=== PATIENT | female | born 1960 | race Caucasian/White ===

== ENCOUNTER 2017-08-25 13:02 | Inpatient (IN) | payer OTHER, MEDICARE ==
[~2017-08-25] VITALS: Ht 165.1 cm; Wt 75.3 kg
--- NOTE | 2017-08-25 14:50 | NUR ---
[id number]: PT IS 57 YEARS OLD FEMALE. ADMITTED ON 5150 FOR DTS. ACCORDING TO THE HOLD, PT HAS A HISTORY OF BIPOLAR. IS CURRENTLY CONCERNED THAT PT IS MANIC. STATES SHE HAD VOICED SUICIDAL IDEATIONS TODAY AND SAID PT WANTS TO TAKE ALL MEDICATIONS. PT DENIES SUICIDAL IDEATION AND HOMICIDAL IDEATION AT THIS TIME. PT HAS BIPOLAR, PSYCHOSIS, AFIB. BELONGINGS STORED AND DOCUMENTED. MRSA DONE. SKIN IS CLEAR. NOTIFIED DR. GARCIA AND REBECCA BROWNLEE ABOUT ADMISSION. PROVIDE PT'S RIGHT HANDBOOK AND ESCORTED PT AROUND THE UNIT TO BECOME MORE FAMILIARIZED. EDUCATED PT ON MEAL TIMES AND ACTIVITIES SCHEDULED. ALL PAPERWORK AND COMPUTER DOCUMENTATION COMPLETED. WILL ENDORSE TO INCOMING NURSE TO DOUBLE CHECK ALL COMPUTER AND PAPERWORK.
[2017-08-25] MEDS ORDERED: RISP1TAB7 PO (15:24)
[2017-08-25] MEDS ORDERED: PROP20TA7 PO (15:24)
[2017-08-25] MEDS ORDERED: ATOR10TA PO (15:24)
[2017-08-25] MEDS ORDERED: BENZ1TAB7 PO (15:24)
[2017-08-25] MEDS ORDERED: LEVO50TA8 PO (15:24)
[2017-08-25] MEDS ORDERED: MAG HYDROX/AL HYDROX/SIMETH 30 ML UDC PO PRN (15:30)
[2017-08-25 16:00] VITALS: BP 117/65
[2017-08-25 19:51] VITALS: BP 138/95
[2017-08-26 07:58] LABS: BILIRUBIN,TOTAL 0.4 mg/dL (0.2-1.0); CREATININE 0.9 mg/dL (0.6-1.3); POTASSIUM 3.6 mmol/L (3.5-5.1)
[2017-08-26 08:00] VITALS: BP 131/92
[2017-08-26 08:00] LABS: CHOLESTEROL 165 mg/dL (<200); HDL CHOLESTEROL 73 mg/dL (40-60); LDL 80 mg/dL (0-99); TRIGLYCERIDES 103 mg/dL (30-150)
[2017-08-26] MEDS: BENZTROPINE MESYLATE (1 MG) 1 MG TABLET PO SCH ×2 (11:10→17:08)
[2017-08-26] MEDS: LITHIUM CARBONATE 150 MG CAPSULE PO SCH ×2 (11:10→21:38)
[2017-08-26] MEDS: risperiDONE 1 MG TABLET PO SCH ×2 (11:11→17:07)
[2017-08-26 16:00] VITALS: BP 128/84
[2017-08-26 19:56] VITALS: BP 111/73
[2017-08-26] MEDS: ATORVASTATIN 10 MG TABLET PO SCH (21:38)
[2017-08-26] MEDS: TEMAZEPAM 7.5 MG CAPSULE PO PRN (21:39)
[2017-08-27] MEDS: ACETAMINOPHEN 325 MG TABLET PO PRN ×2 (03:41→20:56)
[2017-08-27] MEDS: clonazePAM 0.5 MG TABLET PO PRN ×2 (03:42→23:58)
[2017-08-27 08:00] VITALS: BP 124/87
[2017-08-27] MEDS: LITHIUM CARBONATE 150 MG CAPSULE PO SCH ×2 (08:36→20:23)
[2017-08-27] MEDS: BENZTROPINE MESYLATE (1 MG) 1 MG TABLET PO SCH ×2 (08:36→17:32)
[2017-08-27] MEDS: LEVOTHYROXINE SODIUM 50 MCG TABLET PO SCH (08:36)
[2017-08-27] MEDS: risperiDONE 1 MG TABLET PO SCH ×2 (08:36→17:32)
[2017-08-27 16:00] VITALS: BP 111/79
[2017-08-27] MEDS: PROPRANOLOL HCL 10 MG TABLET PO SCH (18:18)
[2017-08-27] MEDS: LIDOCAINE 5% (PATCH) 1 EA PATCH TP SCH (20:23)
[2017-08-27 20:57] VITALS: BP 111/57
[2017-08-27] MEDS: ATORVASTATIN 10 MG TABLET PO SCH (21:31)
[2017-08-27] MEDS: TEMAZEPAM 7.5 MG CAPSULE PO PRN (21:47)
--- NOTE | 2017-08-27 23:58 | NUR ---
GPS RN NOTES: PATIENT VERY ANXIOUS AND RESTLESS, YELLING AND SCREAMING. ADMINISTERED KLONOPIN 0.5MG PO ORDERED. WILL CONTINUE TO MONITOR [id number] FOR SAFETY AND BEHAVIOR.
--- NOTE | 2017-08-28 06:28 | NUR ---
GPS RN NOTES: PATIENT NOTED TO BE SEXUALLY PREOCCUPIED. PATIENT WAS ASKING FOR DIAPER AND PREFERS MALE TO CHANGE HER. PATIENT STATED TO HAVE A GOOD LOOKING DOCTOR ASSESS HER. PATIENT WAS BEING REDIRECTED. PATIENT IS AMBULATORY WITH STEADY GAIT. BUT PATIENT WAS ASKING FOR ASSISTIVE DEVICE (WALKER). AND THEN, PT CAME TO THE UNIT AND INFORMED PRIMARY NURSE THAT IT'S MIRACLE THAT SHE CAN WALK NOW. PATIENT STATES SHE WILL CALL 911. BECAUSE PATIENT STATES "THEY DON'T LISTEN TO ME AND NOT HELPING ME". WILL CONTINUE TO REDIRECT PATIENT'S BEHAVIOR. SET LIMITS. WILL CONTINUE TO MONITOR [id number] FOR SAFETY AND BEHAVIOR.
[2017-08-28] MEDS: ACETAMINOPHEN 325 MG TABLET PO PRN (06:51)
--- NOTE | 2017-08-28 07:55 | NUR ---
RN-CO: Patient is sexually preoccupied, showing her "behind" to staff. Verbalizing profanities like " I like that RN he is handsome I want to have three with them." Advised patient to stop saying those words, patient smiled and went to her room. Staff will continue to monitor and notify MD.
[2017-08-28 08:00] VITALS: BP 146/67
[2017-08-28] MEDS: LEVOTHYROXINE SODIUM 50 MCG TABLET PO SCH (08:05)
[2017-08-28] MEDS: BENZTROPINE MESYLATE (1 MG) 1 MG TABLET PO SCH ×2 (08:05→16:35)
[2017-08-28] MEDS: LITHIUM CARBONATE 150 MG CAPSULE PO SCH ×2 (08:05→20:27)
[2017-08-28] MEDS: PROPRANOLOL HCL 10 MG TABLET PO SCH ×2 (08:05→16:36)
[2017-08-28] MEDS: risperiDONE 1 MG TABLET PO SCH ×2 (08:05→16:35)
--- NOTE | 2017-08-28 08:13 | NUR ---
RN-CO: PATIENT REQUESTED TO HAVE A MALE STAFF TO HELP HER CHANGE HER UNDERWEAR HOWEVER PATIENT IS SELF CARE AND AMBULATORY. PATIENT STATED A WANT A MALE STAFF TO FEED ME WITH " 2 EGGS AND 1 SAUSAGE" AND THEN SMILED. PATIENT NEEDS CONSTANT REDIRECTIONS AND LIMIT SETTING.
[2017-08-28 13:11] LABS: CALCIUM, SERUM 9.9 mg/dL (8.5-10.1); CREATININE 0.9 mg/dL (0.6-1.3); POTASSIUM 3.9 mmol/L (3.5-5.1)
[2017-08-28 13:12] LABS: BASOPHILS % (AUTO) 0.3 % (0.0-2.0); EOSINOPHILS # (AUTO) 0.1 /CMM (0.0-0.7); EOSINOPHILS % (AUTO) 1.7 % (0.0-6.0); HEMATOCRIT 35 % (33-45); HEMOGLOBIN 11.3 g/dL (11.5-14.8); LYMPHOCYTES # (AUTO) 1.8 /CMM (0.8-4.8); LYMPHOCYTES % (AUTO) 20.3 % (20.0-44.0); MEAN CORPUSCULAR HEMOGLOBIN 32 PG (26.0-33.0); MEAN CORPUSCULAR HGB CONC 33 g/dl (31.0-36.0); MEAN CORPUSCULAR VOLUME 97 fL (82-100); MONOCYTES # (AUTO) 0.5 /CMM (0.1-1.30); MONOCYTES % (AUTO) 6.1 % (2.0-12.0); NEUTROPHILS # (AUTO) 6.2 /CMM (1.8-8.9); NEUTROPHILS % (AUTO) 71.6 % (43.0-81.0); PLATELET COUNT (AUTO) 296 /CMM (150-450); RED BLOOD CELL COUNT(AUTO) 3.56 MIL/uL (4.0-5.2); WHITE BLOOD COUNT (AUTO) 8.7 K/uL (4.3-11.0)
--- NOTE | 2017-08-28 14:24 | NUR ---
Initial Discharge Note: Patient states that the address [[address] [place] [address]], which is listed on the facesheet is not accurate. Patient states that she and her recently moved, but she cannot recall the current address. Patient provided SW with her 's contact information. SW attempted to contact patient's with the numbers provided by patient and the numbers listed on the facesheet, but was unsuccessful. SW called patient's Karson [phone] [not accepting calls at this time] / [phone] [non working number]/ [phone] [left voicemail with direct contact information]/ [phone] [left voicemail with direct contact information]. SW to follow up with MD and facilitate safe and proper discharge.
--- NOTE | 2017-08-28 15:10 | NUR ---
Discharge Planning: DEENA spoke with patient's Karson [phone]. Karson stated that he would like patient to return home upon discharge. Addendum: 08/30/17 at 1540 by ABRAHAM SHAFFER Per pt's , the address on facesheet is accurate as they have not moved yet.
[2017-08-28 16:00] VITALS: BP 131/97
[2017-08-28] MEDS: MAGNESIUM HYDROXIDE 30 ML UDC PO PRN (18:51)
[2017-08-28 19:57] VITALS: BP 102/51
[2017-08-28] MEDS: LIDOCAINE 5% (PATCH) 1 EA PATCH TP SCH ×3 (20:00→22:52)
[2017-08-28] MEDS: ATORVASTATIN 10 MG TABLET PO SCH ×2 (21:26→22:52)
--- NOTE | 2017-08-28 21:26 | NUR ---
Patient refused her lipitor tonight, she stated, " I don't want to take medication, I am tired."
--- NOTE | 2017-08-28 21:30 | NUR ---
PATIENT REFUSED HER LIDODERM PATCH TONIGHT, SHE STATED, " I REFUSED TO TAKE ANYTHING TONIGHT, MY ARM IS NOT HURTING ANYMORE."
--- NOTE | 2017-08-28 22:50 | NUR ---
0769 PATIENT APPROACHED ME ASKING FOR HER NIGHT MEDICATIONS. SHE STATED THAT SHE WANTS TO TAKE THEM NOW BECAUSE THEY WILL HELP HER SLEEP.
[2017-08-28] MEDS: TEMAZEPAM 7.5 MG CAPSULE PO PRN (23:48)
--- NOTE | 2017-08-28 23:48 | NUR ---
Patient came up at the nurse's station, unable to sleep, requesting for her sleeping medication, temazepam 15 mg po given.
[2017-08-29] MEDS: MAGNESIUM HYDROXIDE 30 ML UDC PO PRN (07:14)
--- NOTE | 2017-08-29 07:15 | NUR ---
PATIENT STILL HAD NO BOWEL MOVEMENT, MILK OF MAGNESIA 30 ML PO GIVEN. WILL MONITOR BOWEL MOVEMENT
[2017-08-29 08:00] VITALS: BP 125/85
[2017-08-29] MEDS: risperiDONE 1 MG TABLET PO SCH ×2 (08:24→16:26)
[2017-08-29] MEDS: BENZTROPINE MESYLATE (1 MG) 1 MG TABLET PO SCH ×2 (08:24→16:26)
[2017-08-29] MEDS: LITHIUM CARBONATE 150 MG CAPSULE PO SCH ×2 (08:24→20:13)
[2017-08-29] MEDS: LEVOTHYROXINE SODIUM 50 MCG TABLET PO SCH (08:24)
[2017-08-29] MEDS: PROPRANOLOL HCL 10 MG TABLET PO SCH ×2 (08:25→16:27)
[2017-08-29 16:00] VITALS: BP 105/73
[2017-08-29 20:00] VITALS: BP 106/64
[2017-08-30 08:00] VITALS: BP 109/76
[2017-08-30] MEDS: BENZTROPINE MESYLATE (1 MG) 1 MG TABLET PO SCH ×2 (08:03→16:06)
[2017-08-30] MEDS: LITHIUM CARBONATE 150 MG CAPSULE PO SCH ×2 (08:03→20:11)
[2017-08-30] MEDS: PROPRANOLOL HCL 10 MG TABLET PO SCH ×2 (08:03→16:06)
[2017-08-30] MEDS: LEVOTHYROXINE SODIUM 50 MCG TABLET PO SCH (08:03)
[2017-08-30] MEDS: risperiDONE 1 MG TABLET PO SCH ×2 (08:04→16:06)
[2017-08-30 08:33] VITALS: BP 109/76
--- NOTE | 2017-08-30 09:20 | NUR ---
UR Review: DEENA called and spoke with UR immigration case worker Reg from [facility] @ [phone]. Reg informed DEENA that patient is under Medicare parts A&B and that there is no clinical review required for this patient. Reg stated that he will update that in his system as well.
--- NOTE | 2017-08-30 12:06 | NUR ---
UR Review: DEENA spoke with case management assistant Khang [phone] ext [phone] and provided him with verbal clinicals. Khang authorized stay through the weekend with review due on September 02.
--- NOTE | 2017-08-30 15:37 | NUR ---
Discharge Planning: DEENA called and left a message for patient's Karson [phone] regarding patient's discharge set for Saturday. DEENA provided her direct contact information in the voicemail.
--- NOTE | 2017-08-30 15:57 | NUR ---
Discharge Planning: DEENA spoke with patient's Karson [phone] who had concerns about patient's discharge on Saturday. Karson stated that he would like to speak with psychiatrist. DEENA informed Dr. Sweeney.
[2017-08-30 16:00] VITALS: BP 128/76
[2017-08-30] MEDS: ACETAMINOPHEN 325 MG TABLET PO PRN (16:05)
[2017-08-30] MEDS: LIDOCAINE 5% (PATCH) 1 EA PATCH TP SCH (19:21)
[2017-08-30 20:00] VITALS: BP 121/57
[2017-08-30] MEDS: ATORVASTATIN 10 MG TABLET PO SCH (21:06)
[2017-08-31 08:00] VITALS: BP 112/81
[2017-08-31] MEDS: risperiDONE 1 MG TABLET PO SCH ×2 (08:55→16:19)
[2017-08-31] MEDS: LITHIUM CARBONATE 150 MG CAPSULE PO SCH ×2 (08:55→21:35)
[2017-08-31] MEDS: LEVOTHYROXINE SODIUM 50 MCG TABLET PO SCH (08:55)
[2017-08-31] MEDS: BENZTROPINE MESYLATE (1 MG) 1 MG TABLET PO SCH ×2 (08:55→16:19)
[2017-08-31] MEDS: PROPRANOLOL HCL 10 MG TABLET PO SCH ×2 (08:56→16:17)
[2017-08-31 16:00] VITALS: BP 105/60
[2017-08-31 20:00] VITALS: BP 122/78
[2017-08-31] MEDS: LIDOCAINE 5% (PATCH) 1 EA PATCH TP SCH (20:32)
[2017-08-31] MEDS: ATORVASTATIN 10 MG TABLET PO SCH (21:35)
--- NOTE | 2017-09-01 01:29 | NUR ---
Pt has been quite fragmented, confused, & unpredictable but compliant with care.
[2017-09-01] MEDS: BENZTROPINE MESYLATE (1 MG) 1 MG TABLET PO SCH ×2 (08:16→16:48)
[2017-09-01] MEDS: risperiDONE 1 MG TABLET PO SCH ×2 (08:16→16:48)
[2017-09-01] MEDS: LEVOTHYROXINE SODIUM 50 MCG TABLET PO SCH (08:16)
[2017-09-01] MEDS: PROPRANOLOL HCL 10 MG TABLET PO SCH ×2 (08:17→16:49)
[2017-09-01] MEDS: LITHIUM CARBONATE 150 MG CAPSULE PO SCH ×2 (08:17→20:19)
[2017-09-01 08:36] VITALS: BP 100/63
[2017-09-01 16:12] VITALS: BP 112/74
[2017-09-01] MEDS: LIDOCAINE 5% (PATCH) 1 EA PATCH TP SCH (19:36)
[2017-09-01 19:55] VITALS: BP 97/57
[2017-09-01] MEDS: ATORVASTATIN 10 MG TABLET PO SCH (21:54)
[2017-09-01] MEDS: TEMAZEPAM 7.5 MG CAPSULE PO PRN (23:19)
--- NOTE | 2017-09-01 23:19 | NUR ---
TEMAZEPAM 15 MG CAP PO GIVEN FOR INSOMNIA. WILL CONTINUE TO MONITOR
--- NOTE | 2017-09-02 00:22 | NUR ---
0020: PATIENT SLEEPING AT THIS TIME. NO APPARENT DISTRESS NOTED. WILL CONTINUE TO MONITOR.
[2017-09-02 08:00] VITALS: BP 114/79
[2017-09-02] MEDS: LITHIUM CARBONATE 150 MG CAPSULE PO SCH ×2 (08:50→21:09)
[2017-09-02] MEDS: PROPRANOLOL HCL 10 MG TABLET PO SCH ×2 (08:51→18:19)
[2017-09-02] MEDS: risperiDONE 1 MG TABLET PO SCH ×2 (08:51→18:18)
[2017-09-02] MEDS: LEVOTHYROXINE SODIUM 50 MCG TABLET PO SCH (08:51)
[2017-09-02] MEDS: BENZTROPINE MESYLATE (1 MG) 1 MG TABLET PO SCH ×2 (08:51→18:18)
--- NOTE | 2017-09-02 09:47 | NUR ---
UR Review: DEENA left verbal clinicals for machine adjuster leader case trim Khang [phone] ext [phone]. SW provided progress notes, support system and medication. DEENA requested authorization for additional days.
--- NOTE | 2017-09-02 11:09 | NUR ---
UR Review: SW was informed by telephonic case manager Khang [phone] that patient was authorized through the , with a review due on the .
[2017-09-02 16:00] VITALS: BP 140/93
[2017-09-02 19:48] VITALS: BP 110/79
[2017-09-02] MEDS: LIDOCAINE 5% (PATCH) 1 EA PATCH TP SCH (21:00)
[2017-09-02] MEDS: ATORVASTATIN 10 MG TABLET PO SCH (21:09)
[2017-09-02] MEDS: TEMAZEPAM 7.5 MG CAPSULE PO PRN (21:10)
[2017-09-03 08:00] VITALS: BP 124/97
[2017-09-03] MEDS: risperiDONE 1 MG TABLET PO SCH ×2 (08:35→16:10)
[2017-09-03] MEDS: LEVOTHYROXINE SODIUM 50 MCG TABLET PO SCH (08:35)
[2017-09-03] MEDS: BENZTROPINE MESYLATE (1 MG) 1 MG TABLET PO SCH ×2 (08:35→16:10)
[2017-09-03] MEDS: LITHIUM CARBONATE 150 MG CAPSULE PO SCH ×2 (08:35→20:56)
[2017-09-03] MEDS: PROPRANOLOL HCL 10 MG TABLET PO SCH ×2 (08:36→16:11)
--- NOTE | 2017-09-03 15:15 | NUR ---
Discharge Planning: DEENA spoke with patient's Karson [phone], who stated that he will be able to pick patient up tomorrow between 3-4pm.
[2017-09-03 16:10] VITALS: BP 120/79
[2017-09-03] MEDS: clonazePAM 0.5 MG TABLET PO PRN (19:52)
[2017-09-03 20:15] VITALS: BP 120/67
[2017-09-03] MEDS: ATORVASTATIN 10 MG TABLET PO SCH (20:56)
[2017-09-03] MEDS: LIDOCAINE 5% (PATCH) 1 EA PATCH TP SCH (20:56)
[2017-09-03] MEDS: TEMAZEPAM 7.5 MG CAPSULE PO PRN (20:57)
[2017-09-04 08:00] VITALS: BP 132/80
[2017-09-04 08:12] VITALS: BP 132/80
[2017-09-04] MEDS: LEVOTHYROXINE SODIUM 50 MCG TABLET PO SCH (08:12)
[2017-09-04] MEDS: BENZTROPINE MESYLATE (1 MG) 1 MG TABLET PO SCH (08:12)
[2017-09-04] MEDS: LITHIUM CARBONATE 150 MG CAPSULE PO SCH (08:12)
[2017-09-04] MEDS: PROPRANOLOL HCL 10 MG TABLET PO SCH (08:12)
[2017-09-04] MEDS: risperiDONE 1 MG TABLET PO SCH (08:13)
--- NOTE | 2017-09-04 10:02 | NUR ---
Discharge Note: Patient will be discharged home to [address] [place] [address], where patient resides with her . Patient will be picked up by her , Karson [phone], in his private vehicle. Patient and both agreement with the discharge plan. Upon discharge, patient is cooperative. Patient denies suicidal and homicidal ideation. Patient will be seen by her sql developer dba, Dr. Benoit [phone] on September 05 at 9:30am at his [facility], which is located on [address] [place] [address] [address] [place] [address]. Patient will also see her psychiatrist Dr. Cruz [address] [facility] [address] [place] [address] on September 11 at 5:40pm.
--- NOTE | 2017-09-04 11:40 | NUR ---
UR Review: DEENA spoke with case management coordinator Khang [phone] ext [phone] and informed him that patient will be discharging from the hospital today and that no additional days were needed. Khang thanked DEENA.
--- NOTE | 2017-09-04 15:50 | NUR ---
TYPESETTING MACHINE OPERATOR/TENDER NOTE :PATIENT ALERT ,VERBALLY RESPONSIVE ,DENIES SUICIDAL IDEATION ,DENIES HOMICIDAL IDEATION ,DENIES VISUAL AUDITORY HALLUCINATION ,ORIENTED X3 ,NO C/O PAIN ,VS STABLE , AND FABIO TEACHING MANAGER CALLED WITH DISCHARGE ORDERS ,ALL BELONGINGS RETURNED TO PATIENT ,PRESCRIPTION GIVEN TO PATIENT AND EXPLAINED TO PATIENT AND ABLE TO VERBALIZE UNDERSTANDING .PATIENT DISCHARGE WITH .
== END 2017-09-04 15:50 | disposition home or self-care (01) | DRG 885 ==
LOC: GPS 15:07
PROVIDERS: ADMIT Psychiatry & Neurology Psychiatry; ATTEND Nurse Practitioner Acute Care
DX: F31.64 Bipolar disorder, current episode mixed, severe, with psychotic features (principal); E44.0 Moderate protein-calorie malnutrition; M41.86 Other forms of scoliosis, lumbar region; E88.09 Other disorders of plasma-protein metabolism, not elsewhere classified; F23 Brief psychotic disorder; D63.8 Anemia in other chronic diseases classified elsewhere; E03.9 Hypothyroidism, unspecified; E78.5 Hyperlipidemia, unspecified; Z68.27 Body mass index [BMI] 27.0-27.9, adult
CPT/HCPCS: 36415; 80048-TC; 80053-TC; 80061-TC; 85025-TC; 87081-TC

== ENCOUNTER 2018-04-01 19:56 | Inpatient (IN) | payer OTHER, MEDICARE ==
[~2018-04-01] VITALS: Ht 165.1 cm; Wt 75.3 kg
[~2018-04-01 19:56] MED LIST: ATOR10TA PO; LEVO50TA8 PO; PROP20TA7 PO
[2018-04-01] MEDS ORDERED: MAG HYDROX/AL HYDROX/SIMETH 30 ML UDC PO PRN (21:00)
[2018-04-01] MEDS ORDERED: MAGNESIUM HYDROXIDE 30 ML UDC PO PRN (21:00)
[2018-04-01] MEDS ORDERED: FURO20TA4 PO (21:27)
[2018-04-01] MEDS ORDERED: LORA1TAB PO (21:27)
[2018-04-01] MEDS ORDERED: LEVO25TA7 PO (21:27)
[2018-04-01] MEDS ORDERED: ATOR10TA PO (21:27)
[2018-04-01] MEDS ORDERED: DIVA500T4 PO ×2 (21:27)
[2018-04-01] MEDS ORDERED: BENZ2TAB7 PO (21:27)
[2018-04-01] MEDS ORDERED: LITH300T3 PO (21:27)
[2018-04-01] MEDS ORDERED: DIPH50CA4 PO (21:27)
[2018-04-01] MEDS ORDERED: CARV3.122 PO (21:27)
--- NOTE | 2018-04-01 21:30 | NUR ---
GPS ADMISSION NOTE, RECEIVED PATIENT FROM [facility]. PATIENT ARRIVED ON THIS UNIT AT 2130 VIA STRETCHER WITH 2 EMT ESCORTS. PATIENT ADMITTED ON A 5150 HOLD FOR DTO. PER HOLD PATIENT IS NOT SLEEPING, CURSING, SLAMMING DOORS AND HEARING VOICES WHEN SHE PREYS. THE 5150 WAS REVIEWED AND THE DOCUMENTATION IN THE 5150 HOLD APPEARS TO REFLECT THE PRESENTATION OF THE PATIENT. UPON FACE TO FACE ASSESSMENT PATIENT IS CURRENTLY LYING IN BED AWAKE, HAS NO S/S OR COMPLAINTS OF PAIN AT THIS TIME. PATIENT IS DISPLAYING NO S/S OF APPARENT DISTRESS. PATIENT BREATHING IS UNLABORED WITH EQUAL RISE AND FALL OF THE CHEST. PATIENT IS ALERT AND ORIENTATED X 2 ON ROOM AIR. PATIENT ASSISTED WITH TURING AND REPOSITIONING Q2HR AND PRN FOR COMFORT AND CIRCULATION. PATIENT HAS NO NEEDS AT THIS TIME. PATIENT IS NOTED TO BEING HYPERVERBAL, DISHEVELED, DISORGANIZED, ANXIOUS, COOPERATIVE, AND NEEDS REDIRECTION. PATIENT DENIES SUICIDE IDEATIONS AND HOMICIDAL IDEATIONS AT THIS TIME. PATIENT IS UNDER THE PSYCHIATRIC CARE OF DR. PENNINGTON AND THE MEDICAL CARE OF DR TORREY Tran. PATIENT BELONGINGS WERE INVENTORIED AND CHECKED FOR CONTRABAND. ALL CONTRABAND REMOVED AND STORED IN PATIENT HALLWAY LOCKER. PATIENT ADVANCED DIRECTIVES PREFERENCE, IMMUNIZATIONS QUESTIONER, NECESSARY PAPERWORK, AND SKIN ASSESSMENT COMPLETED. PATIENT ORIENTATED TO ROOM, FLOOR, AND STAFF WITH ALL QUESTIONS ANSWERED. PATIENT EDUCATED ON THE USE OF THE CALL METZGER. PATIENT BED SIDE RAILS ARE UP X 2 FOR SAFETY. PATIENT BED IS LOCKED, LOW AND I WILL CONTINUE TO MONITOR THIS PATIENT Q 15 MIN WITH THE HELP OF STAFF TO MAINTAIN SAFETY.
[2018-04-01] MEDS: TEMAZEPAM 7.5 MG CAPSULE PO PRN (23:43)
--- NOTE | 2018-04-01 23:43 | NUR ---
GPS RN NOTE, PATIENT HAS A COMPLAINT OF NOT BEING ABLE TO SLEEP AND IS REQUESTING RESTORIL AT THIS TIME. PATIENT HAS VITAL SIGNS ARE STABLE. GAVE RESTORIL 7.5 MG PO HS ORDERED. WILL REASSESS FOR INSOMNIA AND I WILL CONTINUE TO MONITOR THIS PATIENT.
[2018-04-02] MEDS: LORAZEPAM 0.5 MG TABLET PO PRN (03:56)
--- NOTE | 2018-04-02 03:56 | NUR ---
GPS RN NOTE, PATIENT HAS A COMPLAINT OF FEELING ANXIOUS AND IS REQUESTING ATIVAN AT THIS TIME. PATIENT VITAL SIGNS ARE STABLE. GAVE ATIVAN 0.5 MG PO Q6HR PRN ORDERED. WILL REASSESS FOR ANXIETY AND I WILL CONTINUE TO MONITOR THIS PATIENT.
--- NOTE | 2018-04-02 06:43 | NUR ---
GPS RN NOTE, PATIENT HAS A COMPLAINT OF BOTH SHOULDER PAIN AT 2 OUT10 ON THE PAIN SCALE AND IS REQUESTING TYLENOL AT THIS TIME. PATIENT VITAL SIGNS ARE STABLE. GAVE TYLENOL 650 MG PO Q6HR PRN ORDERED. WILL REASSESS PAIN AND I WILL CONTINUE TO MONITOR THIS PATIENT.
[2018-04-02] MEDS: ACETAMINOPHEN 325 MG TABLET PO PRN (06:46)
[2018-04-02] MEDS ORDERED: LEVOTHYROXINE SODIUM 50 MCG TABLET PO SCH (07:30)
[2018-04-02 08:00] VITALS: BP 100/66
[2018-04-02 08:08] LABS: CHOLESTEROL 145 mg/dL (<200); HDL CHOLESTEROL 59 mg/dL (40-60); LDL 78 mg/dL (0-99); TRIGLYCERIDES 123 mg/dL (30-150)
[2018-04-02 08:09] LABS: ALBUMIN 3.1 g/dL (3.4-5.0); BILIRUBIN,TOTAL 0.3 mg/dL (0.2-1.0); CALCIUM, SERUM 9.1 mg/dL (8.5-10.1); CREATININE 1.1 mg/dL (0.6-1.3); POTASSIUM 4.7 mmol/L (3.5-5.1); TOTAL PROTEIN, SERUM 6.9 g/dL (6.4-8.2)
[2018-04-02] MEDS ORDERED: DIVALPROEX SODIUM 500 MG TABLET.DR PO SCH ×2 (09:00→22:00)
[2018-04-02] MEDS: CARVEDILOL 3.125 MG TABLET PO SCH ×2 (09:03→17:05)
[2018-04-02] MEDS: FUROSEMIDE 20 MG TABLET PO SCH (09:03)
[2018-04-02] MEDS: LEVOTHYROXINE SODIUM 25 MCG TABLET PO SCH (09:03)
[2018-04-02] MEDS: PROPRANOLOL HCL 10 MG TABLET PO SCH ×2 (09:04→21:18)
--- NOTE | 2018-04-02 10:08 | NUR ---
DEENA called the pt's health and social care teacher, Yin ([phone]), but was unable to make contact.
--- NOTE | 2018-04-02 10:22 | NUR ---
SW called the pt's social insurance analyst at the [facility], Yin ([phone]), and discussed keeping in touch about the discharge plan. She will be returning to the [facility] as it is court ordered.
[2018-04-02] MEDS: LITHIUM CARBONATE 150 MG CAPSULE PO SCH ×2 (15:46→21:17)
[2018-04-02 16:00] VITALS: BP 132/85
[2018-04-02 19:55] VITALS: BP 99/65
[2018-04-02] MEDS: DIVALPROEX SODIUM 125 MG CAP.SPRINK PO SCH (20:48)
[2018-04-02] MEDS: diphenhydrAMINE HCL 50 MG CAPSULE PO SCH (21:17)
[2018-04-02] MEDS: BENZTROPINE MESYLATE (1 MG) 1 MG TABLET PO SCH (21:17)
[2018-04-02] MEDS: ATORVASTATIN 10 MG TABLET PO SCH (21:17)
[2018-04-02] MEDS ORDERED: risperiDONE 1 MG TABLET PO SCH (22:00)
[2018-04-02] MEDS ORDERED: ATORVASTATIN 10 MG TABLET PO SCH (22:00)
[2018-04-02 23:29] LABS: APPEARANCE,URINE CLEAR (CLEAR); BILIRUBIN,URINE NEGATIVE (NEGATIVE); BLOOD, URINE NEGATIVE Ery/uL (NEGATIVE); COLOR,URINE YELLOW (YELLOW); KETONES,URINE NEGATIVE (NEGATIVE); LEUKOCYTE ESTERASE ,URINE 1+ (NEGATIVE); NITRITE, URINE NEGATIVE (NEGATIVE); PROTEIN,URINE NEGATIVE (NEGATIVE); UGLUCOSE NEGATIVE (NEGATIVE); UROBILINOGEN,URINE 0.2 EU/dL (0.2)
[2018-04-02 23:35] LABS: BACTERIA,URINE Few /HPF (None Seen); RBC,URINE 0-2 /HPF (0-2); SQUAMOUS EPITHELIAL CELL,UR Few /HPF (None Seen)
[2018-04-02] MEDS: TEMAZEPAM 7.5 MG CAPSULE PO PRN (23:57)
[2018-04-03 08:00] VITALS: BP 112/75
[2018-04-03] MEDS: FUROSEMIDE 20 MG TABLET PO SCH (09:05)
[2018-04-03] MEDS: LITHIUM CARBONATE 150 MG CAPSULE PO SCH ×2 (09:05→20:53)
[2018-04-03] MEDS: DIVALPROEX SODIUM 125 MG CAP.SPRINK PO SCH ×3 (09:05→19:22)
[2018-04-03] MEDS: LEVOTHYROXINE SODIUM 25 MCG TABLET PO SCH (09:06)
[2018-04-03] MEDS: PROPRANOLOL HCL 10 MG TABLET PO SCH ×2 (09:06→20:53)
[2018-04-03] MEDS: CARVEDILOL 3.125 MG TABLET PO SCH ×2 (09:07→17:00)
[2018-04-03] MEDS: CEPHALEXIN MONOHYDRATE 500 MG CAPSULE PO SCH ×2 (13:30→20:53)
--- NOTE | 2018-04-03 13:44 | NUR ---
UR Note: DEENA called the pt's [employer] case fitter, Sunshine ([phone]) and left a clinical on her voicemail.
--- NOTE | 2018-04-03 14:47 | NUR ---
DEENA called the pt's hospital social worker at the [facility], Yin ([phone]), and asked her about the pt's upcoming court date.
--- NOTE | 2018-04-03 14:53 | NUR ---
UR Note: SW called the pt's [employer] case management social worker, Sunshine ([phone]) and left a message on her voicemail.
--- NOTE | 2018-04-03 14:57 | NUR ---
UR Note: SW called the pt's [employer] case maker, Sunshine ([phone]) and left a message on her voicemail.
--- NOTE | 2018-04-03 15:43 | NUR ---
UR Note: Sunshine ([phone] ext [phone]) called the SW and stated that there has been a mix up with the system and there is going to be a different case managers on this case who will contact the SW soon.
[2018-04-03 16:41] VITALS: BP 101/66
[2018-04-03] MEDS: LORAZEPAM 0.5 MG TABLET PO PRN (18:11)
[2018-04-03 20:00] VITALS: BP 137/73
[2018-04-03] MEDS: TEMAZEPAM 7.5 MG CAPSULE PO PRN (20:29)
--- NOTE | 2018-04-03 20:29 | NUR ---
TEMAZEPAM 7.5 MG CAP PO GIVEN PER PATIENT'S REQUEST.
[2018-04-03] MEDS: diphenhydrAMINE HCL 50 MG CAPSULE PO SCH (21:54)
[2018-04-03] MEDS: ATORVASTATIN 10 MG TABLET PO SCH (21:55)
[2018-04-03] MEDS: BENZTROPINE MESYLATE (1 MG) 1 MG TABLET PO SCH (21:55)
[2018-04-03] MEDS: risperiDONE 1 MG TABLET PO SCH (21:57)
[2018-04-03] MEDS: ACETAMINOPHEN 325 MG TABLET PO PRN (21:58)
--- NOTE | 2018-04-03 21:58 | NUR ---
C/O MILD BACK PAIN, 3/10 ON PAIN SCALE, TYLENOL 650 MG TAB PO GIVEN.
[2018-04-04] MEDS: ACETAMINOPHEN 325 MG TABLET PO PRN (04:17)
[2018-04-04 08:00] VITALS: BP 112/72
[2018-04-04] MEDS: LITHIUM CARBONATE 150 MG CAPSULE PO SCH ×2 (08:27→20:36)
[2018-04-04] MEDS: DIVALPROEX SODIUM 125 MG CAP.SPRINK PO SCH ×3 (08:27→21:24)
[2018-04-04] MEDS: LEVOTHYROXINE SODIUM 25 MCG TABLET PO SCH (08:27)
[2018-04-04] MEDS: PROPRANOLOL HCL 10 MG TABLET PO SCH ×2 (08:28→20:36)
[2018-04-04] MEDS: CEPHALEXIN MONOHYDRATE 500 MG CAPSULE PO SCH ×2 (08:28→20:35)
[2018-04-04] MEDS: FUROSEMIDE 20 MG TABLET PO SCH (08:28)
[2018-04-04] MEDS: CARVEDILOL 3.125 MG TABLET PO SCH ×2 (08:28→16:40)
--- NOTE | 2018-04-04 08:33 | NUR ---
DEENA called the pt's , Karson ([phone]), and discussed the pt returning to the [facility] and the involvement in her treatment.
--- NOTE | 2018-04-04 08:35 | NUR ---
UR Note: SW received a call from the pt's Patrick Zambrano pillowcase cleaner ([phone]) stating that the pt is authorized up until 04/05/18 and a review is due on 04/07/18 so that 04/06/18 can be covered as well as additional days if they are needed.
--- NOTE | 2018-04-04 09:19 | NUR ---
SW called the pt's manager social at the [facility], Yin ([phone]), and left a voicemail stating that the SW has some questions that she would like answered.
--- NOTE | 2018-04-04 09:49 | NUR ---
Initial Discharge Plan: Pt is court ordered to return to her [facility] located at [address] [place] [address]; . Per pt, she does not want to return even though she knows that it is court ordered. DEENA explained this to her , Karson ([phone]), as well. DEENA will work with the pt and the MD regarding appropriate discharge planning. DEENA will form a safe and proper discharge.
--- NOTE | 2018-04-04 10:21 | NUR ---
Yin ([phone]), pt's high school social studies teacher from the [facility], returned the call and answered the questions regarding the pt's case. The pt is court ordered to be at the [facility] because she is considered to be incompetent to stay on trial for her misdemeanor and she is not on parole. Yin also provided the SW with the address of the [facility] which is located on [address] [place] [address]; ([phone]). She mentioned that the person to speak to would be Shae.
--- NOTE | 2018-04-04 10:24 | NUR ---
DEENA called Shae ([phone]) from the [facility] and stated that the pt can be picked up depending on the day and the time of the discharge. She recommended that the SW call the pt's to transport her to the [facility] because the pt would be more cooperative.
[2018-04-04] MEDS ORDERED: risperiDONE 1 MG TABLET PO SCH (13:00)
[2018-04-04 13:32] LABS: BASOPHILS % (AUTO) 0.4 % (0.0-2.0); EOSINOPHILS % (AUTO) 1.6 % (0.0-6.0); HEMATOCRIT 36 % (33-45); HEMOGLOBIN 11.6 g/dL (11.5-14.8); LYMPHOCYTES # (AUTO) 2.5 /CMM (0.8-4.8); MEAN CORPUSCULAR HGB CONC 32 g/dl (31.0-36.0); MEAN CORPUSCULAR VOLUME 98 fL (82-100); MONOCYTES # (AUTO) 0.6 /CMM (0.1-1.30); MONOCYTES % (AUTO) 8.9 % (2.0-12.0); NEUTROPHILS # (AUTO) 3.5 /CMM (1.8-8.9); NEUTROPHILS % (AUTO) 52.1 % (43.0-81.0); PLATELET COUNT (AUTO) 249 /CMM (150-450); RDW COEFFICIENT OF VARIATION 15.2 (11.5-15.0); RED BLOOD CELL COUNT(AUTO) 3.67 MIL/uL (4.0-5.2); WHITE BLOOD COUNT (AUTO) 6.8 K/uL (4.3-11.0)
[2018-04-04 13:47] LABS: ALBUMIN 3.5 g/dL (3.4-5.0); BILIRUBIN,TOTAL 0.3 mg/dL (0.2-1.0); CALCIUM, SERUM 9.7 mg/dL (8.5-10.1); CREATININE 1.1 mg/dL (0.6-1.3); MAGNESIUM 1.9 mg/dL (1.8-2.4); POTASSIUM 4.4 mmol/L (3.5-5.1); TOTAL PROTEIN, SERUM 7.9 g/dL (6.4-8.2)
--- NOTE | 2018-04-04 15:30 | NUR ---
GPS/RN-NOTES PATIENT IN HER ROOM NOTED WITH HYPERVERBAL,DANCING AND SINGING,AND SEXUALLY PRE OCCUPIED TALKING ABOUT HER SEX LIFE WITH HER . NETWORK SYSTEMS ADMINISTRATOR REDIRECT PATIENT TO ATTEND ACTIVITY GROUP INSTEAD OF STAYING IN HER ROOM.PATIENT FOLLOW DIRECTIONS.
--- NOTE | 2018-04-04 15:56 | NUR ---
UR Note: DEENA called Tali ([phone] ext [phone]), pt's supportive employment case manager, and left a voicemail for her stating that she will provide a clinical on Saturday with a tentative discharge date on Saturday.
[2018-04-04 16:00] VITALS: BP 110/73
--- NOTE | 2018-04-04 18:00 | NUR ---
GPS/RN-NOTES DURAL MECHANIC FABIO AWARE OF PATIENT BUN OF 20. WILL ENCOURAGE PATIENT TO INCREASE FLUID INTAKE.
[2018-04-04 20:00] VITALS: BP 109/71
[2018-04-04] MEDS: risperiDONE 1 MG TABLET PO SCH (21:24)
[2018-04-04] MEDS: BENZTROPINE MESYLATE (1 MG) 1 MG TABLET PO SCH (21:24)
[2018-04-04] MEDS: diphenhydrAMINE HCL 50 MG CAPSULE PO SCH (21:24)
[2018-04-04] MEDS: ATORVASTATIN 10 MG TABLET PO SCH (21:24)
[2018-04-04] MEDS: LORAZEPAM 0.5 MG TABLET PO PRN (22:01)
[2018-04-05] MEDS: ACETAMINOPHEN 325 MG TABLET PO PRN (01:16)
[2018-04-05 08:00] VITALS: BP 101/64
[2018-04-05] MEDS: DIVALPROEX SODIUM 125 MG CAP.SPRINK PO SCH ×3 (08:17→20:14)
[2018-04-05] MEDS: LEVOTHYROXINE SODIUM 25 MCG TABLET PO SCH (08:17)
[2018-04-05] MEDS: CEPHALEXIN MONOHYDRATE 500 MG CAPSULE PO SCH ×2 (08:17→21:08)
[2018-04-05] MEDS: PROPRANOLOL HCL 10 MG TABLET PO SCH ×2 (08:18→21:10)
[2018-04-05] MEDS: CARVEDILOL 3.125 MG TABLET PO SCH ×2 (08:18→16:27)
[2018-04-05] MEDS: LITHIUM CARBONATE 150 MG CAPSULE PO SCH ×2 (08:18→21:09)
[2018-04-05] MEDS: FUROSEMIDE 20 MG TABLET PO SCH (08:19)
[2018-04-05] MEDS: risperiDONE 1 MG TABLET PO SCH ×2 (12:54→22:14)
--- NOTE | 2018-04-05 14:45 | NUR ---
GPS/RN-NOTES PATIENT REQUESTING TYLENOL FOR STOMACH ACHE. TYLENOL 650MG P.O GIVEN PRN ORDER. WILL CONT. MONITORING.
[2018-04-05 16:06] VITALS: BP_SYST 125; BP_DIAS 52; BP_DIAS 62
[2018-04-05] MEDS: LORAZEPAM 0.5 MG TABLET PO PRN (19:36)
[2018-04-05 20:00] VITALS: BP 129/90
[2018-04-05] MEDS: diphenhydrAMINE HCL 50 MG CAPSULE PO SCH (22:14)
[2018-04-05] MEDS: ATORVASTATIN 10 MG TABLET PO SCH (22:14)
[2018-04-05] MEDS: BENZTROPINE MESYLATE (1 MG) 1 MG TABLET PO SCH (22:15)
[2018-04-06] MEDS: CEPHALEXIN MONOHYDRATE 500 MG CAPSULE PO SCH ×2 (08:28→21:22)
[2018-04-06] MEDS: LITHIUM CARBONATE 150 MG CAPSULE PO SCH ×2 (08:28→21:24)
[2018-04-06] MEDS: CARVEDILOL 3.125 MG TABLET PO SCH ×2 (08:29→16:42)
[2018-04-06] MEDS: risperiDONE 1 MG TABLET PO SCH ×2 (08:29→21:22)
[2018-04-06] MEDS: PROPRANOLOL HCL 10 MG TABLET PO SCH ×2 (08:30→21:21)
[2018-04-06] MEDS: DIVALPROEX SODIUM 125 MG CAP.SPRINK PO SCH ×3 (08:30→20:57)
[2018-04-06] MEDS: FUROSEMIDE 20 MG TABLET PO SCH (08:31)
[2018-04-06] MEDS: LEVOTHYROXINE SODIUM 25 MCG TABLET PO SCH (08:31)
[2018-04-06 08:56] VITALS: BP 143/84
[2018-04-06] MEDS: LORAZEPAM 0.5 MG TABLET PO PRN (12:52)
--- NOTE | 2018-04-06 12:52 | NUR ---
rn notes administered Ativan 0.5 mg po prn for anxiety, per patient request, v/s taken bp-104/50, p-102, continued monitoring.
[2018-04-06] MEDS: ACETAMINOPHEN 325 MG TABLET PO PRN (13:51)
--- NOTE | 2018-04-06 13:51 | NUR ---
rn notes administered tylenol 650 mg po prn for abdominal cramping, per patient request, continued monitoring.
[2018-04-06 16:00] VITALS: BP 97/78
[2018-04-06 20:00] VITALS: BP 103/65
[2018-04-06] MEDS: BENZTROPINE MESYLATE (1 MG) 1 MG TABLET PO SCH (21:21)
[2018-04-06] MEDS: ATORVASTATIN 10 MG TABLET PO SCH (21:22)
[2018-04-06] MEDS: diphenhydrAMINE HCL 50 MG CAPSULE PO SCH (21:22)
[2018-04-06] MEDS: TEMAZEPAM 7.5 MG CAPSULE PO PRN (23:20)
[2018-04-07] MEDS: ACETAMINOPHEN 325 MG TABLET PO PRN ×2 (06:47→15:38)
[2018-04-07 08:00] VITALS: BP 100/78
[2018-04-07] MEDS: risperiDONE 1 MG TABLET PO SCH ×2 (08:43→21:30)
[2018-04-07] MEDS: LITHIUM CARBONATE 150 MG CAPSULE PO SCH ×2 (08:43→20:36)
[2018-04-07] MEDS: LEVOTHYROXINE SODIUM 25 MCG TABLET PO SCH (08:43)
[2018-04-07] MEDS: DIVALPROEX SODIUM 125 MG CAP.SPRINK PO SCH ×3 (08:43→20:36)
[2018-04-07] MEDS: CEPHALEXIN MONOHYDRATE 500 MG CAPSULE PO SCH ×2 (08:43→20:36)
[2018-04-07] MEDS: PROPRANOLOL HCL 10 MG TABLET PO SCH ×2 (08:44→20:36)
[2018-04-07] MEDS: CARVEDILOL 3.125 MG TABLET PO SCH ×2 (08:44→16:29)
[2018-04-07] MEDS: FUROSEMIDE 20 MG TABLET PO SCH (08:44)
--- NOTE | 2018-04-07 09:56 | NUR ---
UR Note: DEENA called Tali [phone]), pt's major case detective, and left a clinical on her voicemail
--- NOTE | 2018-04-07 12:06 | NUR ---
DEENA called the pt's , Karson ([phone]), and left a message for him on his voicemail regarding discharge planning.
--- NOTE | 2018-04-07 13:27 | NUR ---
UR Note: Tali ([phone]), pt's outsole caser, called the SW and left a voicemail stating that the pt is authorized from 04/06-04/08 with a review due on 04/09 if the pt is not discharged by then.
--- NOTE | 2018-04-07 15:44 | NUR ---
GPS/RN-NOTES PATIENT REQUESTING TYLENOL FOR STOMACH ACHE. TYLENOL 650MG P.O GIVEN PRN ORDER. WILL CONT. MONITORING.
--- NOTE | 2018-04-07 15:49 | NUR ---
Karson [phone]), the pt's , called the SW and stated that the pt does not understand what her discharge plan is and the SW stated that she had explained it to the pt many times. Karson stated that he will not be able to take the pt to the facility because she will fight with him and asked the SW to arrange the transportation.
[2018-04-07 16:00] VITALS: BP 100/60
[2018-04-07 20:49] VITALS: BP 98/60
[2018-04-07] MEDS: BENZTROPINE MESYLATE (1 MG) 1 MG TABLET PO SCH (21:30)
[2018-04-07] MEDS: ATORVASTATIN 10 MG TABLET PO SCH (21:30)
[2018-04-07] MEDS: diphenhydrAMINE HCL 50 MG CAPSULE PO SCH (21:30)
[2018-04-08] MEDS: TEMAZEPAM 7.5 MG CAPSULE PO PRN (00:52)
[2018-04-08 08:00] VITALS: BP 124/63
[2018-04-08] MEDS: CEPHALEXIN MONOHYDRATE 500 MG CAPSULE PO SCH ×2 (08:39→21:07)
[2018-04-08] MEDS: DIVALPROEX SODIUM 125 MG CAP.SPRINK PO SCH ×3 (08:39→20:51)
[2018-04-08] MEDS: LEVOTHYROXINE SODIUM 25 MCG TABLET PO SCH (08:39)
[2018-04-08] MEDS: LITHIUM CARBONATE 150 MG CAPSULE PO SCH ×2 (08:39→21:07)
[2018-04-08] MEDS: FUROSEMIDE 20 MG TABLET PO SCH (08:40)
[2018-04-08] MEDS: CARVEDILOL 3.125 MG TABLET PO SCH ×2 (08:40→16:01)
[2018-04-08] MEDS: PROPRANOLOL HCL 10 MG TABLET PO SCH ×2 (08:41→21:08)
--- NOTE | 2018-04-08 12:22 | NUR ---
DEENA called Shae ([phone]) from the [facility] [place] and informed her that the pt will most likely be discharging tomorrow and that right now the SW is trying to figure out if the will transport her or if we need to consider an alternative option.
--- NOTE | 2018-04-08 12:23 | NUR ---
DEENA called the pt's , Karson ([phone]), and he stated that he does not want to pick the pt up.
--- NOTE | 2018-04-08 13:07 | NUR ---
DEENA called Shae ([phone]) from the [facility] and informed her that the psychiatrist would feel more comfortable with the pt being discharged on instead of Saturday but the DEENA needs to ask the insurance company for authorization.
[2018-04-08] MEDS ORDERED: INVEGA SUSTENNA 156 MG IM ONE (13:30)
[2018-04-08 16:00] VITALS: BP 118/67
[2018-04-08] MEDS: IBUPROFEN 600 MG TABLET PO PRN (19:27)
--- NOTE | 2018-04-08 19:28 | NUR ---
GPS-RN PATIENT C/O LOWER BACK PAIN ON A PAIN SCALE OF 3/10, PATIENT IS REQUESTING FOR MOTRIN. ADMINISTERED MOTRIN 600MG PO ORDERED. WILL CONTINUE TO MONITOR AND REASSESS FOR PAIN.
[2018-04-08] MEDS: BENZTROPINE MESYLATE (1 MG) 1 MG TABLET PO SCH (21:07)
[2018-04-08] MEDS: diphenhydrAMINE HCL 50 MG CAPSULE PO SCH (21:08)
[2018-04-08 21:20] VITALS: BP 107/67
[2018-04-08] MEDS: ATORVASTATIN 10 MG TABLET PO SCH (22:09)
[2018-04-09] MEDS: IBUPROFEN 600 MG TABLET PO PRN (05:43)
[2018-04-09 08:00] VITALS: BP 123/74
[2018-04-09] MEDS: CEPHALEXIN MONOHYDRATE 500 MG CAPSULE PO SCH (09:19)
[2018-04-09] MEDS: DIVALPROEX SODIUM 125 MG CAP.SPRINK PO SCH ×3 (09:19→20:38)
[2018-04-09] MEDS: FUROSEMIDE 20 MG TABLET PO SCH (09:19)
[2018-04-09] MEDS: PROPRANOLOL HCL 10 MG TABLET PO SCH ×2 (09:20→21:28)
[2018-04-09] MEDS: CARVEDILOL 3.125 MG TABLET PO SCH ×2 (09:21→17:00)
[2018-04-09] MEDS: LITHIUM CARBONATE 150 MG CAPSULE PO SCH ×2 (09:22→21:27)
[2018-04-09] MEDS: LEVOTHYROXINE SODIUM 25 MCG TABLET PO SCH (09:22)
--- NOTE | 2018-04-09 10:14 | NUR ---
UR Note: DEENA called Tali [phone] ext [phone]), pt's machine adjuster leader case trim, and left a clinical on her voicemail.
--- NOTE | 2018-04-09 15:05 | NUR ---
UR Note: Tali [phone]), pt's renal case manager, called the SW and stated that the pt is authorized for 04/09/18 and will request a discharge clinical tomorrow, 04/10/18.
--- NOTE | 2018-04-09 15:06 | NUR ---
DEENA called Shae ([phone]) from the [facility] and informed her about the pt being discharged tomorrow. She will work on getting transportation for the pt.
--- NOTE | 2018-04-09 15:06 | NUR ---
DEENA called the pt's , Karson ([phone]), but was unable to leave a message due to a full mailbox.
[2018-04-09] MEDS: LORAZEPAM 0.5 MG TABLET PO PRN (15:48)
--- NOTE | 2018-04-09 15:48 | NUR ---
medicated for nerves with ativan po.
[2018-04-09 16:20] VITALS: BP 100/54
[2018-04-09 20:45] VITALS: BP 118/72
[2018-04-09] MEDS: diphenhydrAMINE HCL 50 MG CAPSULE PO SCH (21:27)
[2018-04-09] MEDS: BENZTROPINE MESYLATE (1 MG) 1 MG TABLET PO SCH (21:27)
[2018-04-09] MEDS: ATORVASTATIN 10 MG TABLET PO SCH (21:27)
[2018-04-10] MEDS: IBUPROFEN 600 MG TABLET PO PRN (05:41)
[2018-04-10 06:34] LABS: BASOPHILS % (AUTO) 0.3 % (0.0-2.0); EOSINOPHILS % (AUTO) 3.1 % (0.0-6.0); HEMATOCRIT 36 % (33-45); HEMOGLOBIN 11.7 g/dL (11.5-14.8); LYMPHOCYTES # (AUTO) 1.9 /CMM (0.8-4.8); LYMPHOCYTES % (AUTO) 29.3 % (20.0-44.0); MEAN CORPUSCULAR HGB CONC 32 g/dl (31.0-36.0); MEAN CORPUSCULAR VOLUME 98 fL (82-100); MONOCYTES # (AUTO) 0.6 /CMM (0.1-1.30); MONOCYTES % (AUTO) 9.3 % (2.0-12.0); NEUTROPHILS # (AUTO) 3.7 /CMM (1.8-8.9); PLATELET COUNT (AUTO) 223 /CMM (150-450); RDW COEFFICIENT OF VARIATION 14.8 (11.5-15.0); RED BLOOD CELL COUNT(AUTO) 3.69 MIL/uL (4.0-5.2); WHITE BLOOD COUNT (AUTO) 6.4 K/uL (4.3-11.0)
--- NOTE | 2018-04-10 06:48 | NUR ---
GPS-RN RETURNED CATHETERIZATION TRAY FR 15 IN THE OMNICELL. UNABLE TO RECORD.
[2018-04-10 06:55] LABS: ALBUMIN 3.6 g/dL (3.4-5.0); BILIRUBIN,TOTAL 0.4 mg/dL (0.2-1.0); CALCIUM, SERUM 9.8 mg/dL (8.5-10.1); CREATININE 0.9 mg/dL (0.6-1.3); POTASSIUM 4.1 mmol/L (3.5-5.1); TOTAL PROTEIN, SERUM 7.9 g/dL (6.4-8.2)
[2018-04-10] MEDS: DIVALPROEX SODIUM 125 MG CAP.SPRINK PO SCH (08:04)
[2018-04-10] MEDS: FUROSEMIDE 20 MG TABLET PO SCH (08:05)
[2018-04-10] MEDS: ACETAMINOPHEN 325 MG TABLET PO PRN (08:05)
[2018-04-10] MEDS: LITHIUM CARBONATE 150 MG CAPSULE PO SCH (08:05)
[2018-04-10] MEDS: LEVOTHYROXINE SODIUM 25 MCG TABLET PO SCH (08:05)
[2018-04-10 08:47] VITALS: BP 100/64
[2018-04-10] MEDS: CARVEDILOL 3.125 MG TABLET PO SCH (09:43)
[2018-04-10] MEDS: LORAZEPAM 0.5 MG TABLET PO PRN (09:43)
--- NOTE | 2018-04-10 09:46 | NUR ---
DEENA called the pt's , Karson ([phone]), and informed him that the facility is going to try to arrange transportation for the pt as of right now so that he does not have to pick the pt up.
--- NOTE | 2018-04-10 09:47 | NUR ---
DEENA called Shae ([phone]) from the [facility] and she stated that she will be calling the SW back when she has more information about the drivers schedules.
--- NOTE | 2018-04-10 09:49 | NUR ---
DEENA called the pt's social services at the [facility], Yin ([phone]), and left a message on her voicemail stating that the pt is being discharged today and that she needs to receive an injection on Saturday a week from when she previously had it.
--- NOTE | 2018-04-10 09:51 | NUR ---
DR. PENNINGTON GAVE AN ORDER TO D/C HOLD AND D/C TO [facility] AND TO FOLLOW UP WITH PSYCH AND MEDICAL DOCTORS.
--- NOTE | 2018-04-10 10:43 | NUR ---
Shae ([phone]) from the [facility] called the SW and stated that the drivers can come pick the pt up from the facility around 2pm.
[2018-04-10] MEDS: PROPRANOLOL HCL 10 MG TABLET PO SCH (11:00)
--- NOTE | 2018-04-10 12:22 | NUR ---
Yin ([phone]), [facility] social service assistant, called the and asked for a fax of the pts medications to be sent over to the facility.
--- NOTE | 2018-04-10 12:22 | NUR ---
DENEA faxed the medication lists to the [facility] to the fax number: [phone].
[2018-04-10 12:56] VITALS: BP 110/65
--- NOTE | 2018-04-10 12:58 | NUR ---
pt discharge today by dr. fernández. huc ob agrees with discharge. pt is alert oriented x 3 and ambulatory. calm and cooperative. denies s/i and/or h/i at time of discharge. no acute distress noted. medication prescribed by both providers. skin is clear. belongings returned. exitcare completed. [facility]. pt left in stable condition.
--- NOTE | 2018-04-10 16:03 | NUR ---
Discharge Note: Pt was discharged to the [facility] that she came from located at [address] [place] [address]; ([phone]). Pt was picked up by two drivers from the facility around 12PM. Pts , Karson ([phone]), is aware of the discharge. Upon discharge, the pt had to be reminded multiple times that she is not being discharged home but is being discharged to the facility that she came from. Pt appeared to be in a euthymic mood with an anxious affect. She kept stating that she did not want to go back to the facility. Pt denied both suicidal and homicidal ideation as well as auditory and visual hallucinations. Pt will be under the care of her psychiatrist, Dr. Chuy Macdonald, located at [address] [place] [address]; and locket maker, Dr. Walker Benoit, located at [address] [facility], [place] [address]; . The pts discharge packet was faxed to the [facility].
--- NOTE | 2018-04-10 16:08 | NUR ---
UR Note: DEENA called Tali [phone] ext [phone]), pt's case finisher, and left a discharge clinical on her voicemail.
== END 2018-04-10 12:45 | disposition home or self-care (01) | DRG 885 ==
LOC: GPS 19:56
PROVIDERS: ADMIT Psychiatry & Neurology Psychosomatic Medicine
DX: F25.0 Schizoaffective disorder, bipolar type (principal); E44.1 Mild protein-calorie malnutrition; N39.0 Urinary tract infection, site not specified; E03.9 Hypothyroidism, unspecified; E78.5 Hyperlipidemia, unspecified; I10 Essential (primary) hypertension; Z68.27 Body mass index [BMI] 27.0-27.9, adult
CPT/HCPCS: 36415; 80053-TC; 80061-TC; 80164-TC; 81000-TC; 83735-TC; 85025-TC; 87081-TC; 87086-TC; Q0163

== ENCOUNTER 2018-09-10 00:39 | Inpatient (IN) | payer OTHER, MEDICARE ==
[~2018-09-10] VITALS: Ht 162.6 cm; Wt 68.0 kg
[~2018-09-10 00:39] MED LIST changes: +BENZ2TAB7 PO; +CARV3.122 PO; +DIPH50CA4 PO; +DIVA500T4 PO; +FURO20TA4 PO; +LEVO25TA7 PO; -LEVO50TA8 PO; +LITH300T3 PO; +LORA1TAB PO
[2018-09-10] MEDS ORDERED: MAG HYDROX/AL HYDROX/SIMETH 30 ML UDC PO PRN (01:00)
[2018-09-10] MEDS ORDERED: MAGNESIUM HYDROXIDE 30 ML UDC PO PRN (01:00)
[2018-09-10] MEDS ORDERED: ACETAMINOPHEN 325 MG TABLET PO PRN (01:00)
[2018-09-10 02:14] VITALS: BP 124/76
--- NOTE | 2018-09-10 02:57 | NUR ---
ADMISSION NOTES ADMITTED THIS 58 Y/O FEMALE FROM [facility] , PT. ADMITTED 5250 HOLD , PER HOLD INCREASES TYSON, AGITATION,TALKATIVE, IRRITABLE, NO SLEEPING , THREATING STAFF, , UPON FACE TO FACE ASSESSMENT PATIENT IS A&O X-2,3 ANXIOUS ,UNCOOPERTIVE, HYPERVERBAL , FLAT AFFECT ,EASILY AGITATED , PT.IS POOR HISTORIAN, POOR INSIGHT ,POOR JUDGEMENT ,V/S WNL, NO ACUTE DISTRESS NOTED , MD AWARE AND NOTIFIED OF THE ADMISSION , PT. REFUSED SKIN ASSESSMENT ,ENCOURAGED EXPLAINED RISKS AND BENEFITS BUT STILL REFUSED, ENCOURAGED PT. VERBALIZED ANY FEELING CONCERN TO STAFF, ORIENT TO UNIT POLICY, WILL CONTINUE TO MONITOR FOR Q15, CONTRACT FOR SAFETY AND BEHAVIOR.
[2018-09-10 07:54] LABS: ALBUMIN 3.5 g/dL (3.4-5.0); BILIRUBIN,TOTAL 0.2 mg/dL (0.2-1.0); CALCIUM, SERUM 9.9 mg/dL (8.5-10.1); POTASSIUM 4.2 mmol/L (3.5-5.1); TOTAL PROTEIN, SERUM 7.9 g/dL (6.4-8.2)
[2018-09-10 08:00] VITALS: BP 106/59
[2018-09-10] MEDS ORDERED: ASPI-1152 PO (10:16)
[2018-09-10] MEDS ORDERED: CLON1TAB12 PO (10:16)
[2018-09-10 13:08] LABS: BASOPHILS % (AUTO) 0.3 % (0.0-2.0); EOSINOPHILS % (AUTO) 2.1 % (0.0-6.0); HEMATOCRIT 39 % (33-45); HEMOGLOBIN 13.1 g/dL (11.5-14.8); LYMPHOCYTES # (AUTO) 2.3 /CMM (0.8-4.8); MEAN CORPUSCULAR HGB CONC 33 g/dl (31.0-36.0); MEAN CORPUSCULAR VOLUME 96 fL (82-100); MONOCYTES # (AUTO) 0.5 /CMM (0.1-1.30); MONOCYTES % (AUTO) 7.5 % (2.0-12.0); NEUTROPHILS # (AUTO) 4.3 /CMM (1.8-8.9); NEUTROPHILS % (AUTO) 59.1 % (43.0-81.0); PLATELET COUNT (AUTO) 277 /CMM (150-450); RED BLOOD CELL COUNT(AUTO) 4.08 MIL/uL (4.0-5.2); WHITE BLOOD COUNT (AUTO) 7.3 K/uL (4.3-11.0)
--- NOTE | 2018-09-10 15:15 | NUR ---
UR Note: DEENA faxed a clinical to Dominga Watson ([phone] ext [phone]), [facility] senior case manager, to the fax number: [phone].
--- NOTE | 2018-09-10 15:18 | NUR ---
UR Note: DEENA called Dominga Watson ([phone] ext [phone]), [employer] correctional case records supervisor, and left a voicemail for the pt stating that the SW faxed a clinical and would like to know how many days the pt is authorized at this time.
--- NOTE | 2018-09-10 15:21 | NUR ---
DEENA called the pt's , Karson ([phone]), and left a voicemail for him stating that the pt has been admitted to the hospital and that she would like to discuss the pt's initial discharge plan. DEENA asked the pt's to give her a call back whenever it is convenient for him.
--- NOTE | 2018-09-10 15:25 | NUR ---
DEENA called Yin ([phone]), [facility] social science teacher, and left her a voicemail asking if the pt is still living in the [facility] by court order because the pt is not able to provide an answer and the SW cannot reach the pt's .
[2018-09-10 16:00] VITALS: BP 145/77
--- NOTE | 2018-09-10 16:00 | NUR ---
UR Note: Dominga Watson ([phone] ext [phone]), [employer] case repairer, called the SW and conducted a live review on the phone. She stated that she would authorize three days for the pt (09/10/18-09/12/18). Next review will be conducted on 09/12/18.
[2018-09-10] MEDS: CARVEDILOL 3.125 MG TABLET PO SCH (17:41)
[2018-09-10] MEDS: ARIPIPRAZOLE 5 MG TABLET PO SCH ×2 (17:41→21:06)
[2018-09-10] MEDS: PROPRANOLOL HCL 10 MG TABLET PO SCH (17:42)
[2018-09-10] MEDS ORDERED: BENZ1TAB7 PO (18:09)
[2018-09-10] MEDS ORDERED: HYDR50CA PO (19:04)
--- NOTE | 2018-09-10 19:15 | NUR ---
GPS RN NOTES RECEIVED A/O X3,AMBULATES ON THE HALLWAYS,ABLE TO VERBALIZE NEEDS,LABILE AT TIMES,MED COMPLIANT PER REPORT.SELF CARE,WITH EPISODE OF PARANOIA.WILL CONTINUE TO MONITOR BEHAVIOR AND MANAGE ACCORDINGLY.
[2018-09-10 19:52] VITALS: BP 110/67
[2018-09-10 19:57] VITALS: BP 110/67
[2018-09-10] MEDS: ATORVASTATIN 10 MG TABLET PO SCH (21:34)
[2018-09-10] MEDS: TEMAZEPAM 7.5 MG CAPSULE PO PRN (21:35)
--- NOTE | 2018-09-10 21:35 | NUR ---
GPS RN NOTES C/O INSOMNIA,RESTORIL 7.5MG,GIVEN PRN AND PER PATIENT REQUEST
[2018-09-11] MEDS: LORAZEPAM 0.5 MG TABLET PO PRN (03:55)
--- NOTE | 2018-09-11 03:55 | NUR ---
GPS RN NOTES AWAKE,ANXIOUS,COMPLAINTS OF JOINT PAIN,MEDICATED WITH ATIVAN 0.5MG PO,ALONG WITH TYLENOL 650MG PO ORDERED PRN FOR MILD PAIN
[2018-09-11 08:00] VITALS: BP 106/61
[2018-09-11 08:17] LABS: CHOLESTEROL 169 mg/dL (<200); HDL CHOLESTEROL 65 mg/dL (40-60); LDL 89 mg/dL (0-99); TRIGLYCERIDES 143 mg/dL (30-150)
[2018-09-11] MEDS ORDERED: BENZTROPINE MESYLATE (1 MG) 1 MG TABLET PO SCH (09:00)
[2018-09-11] MEDS: PROPRANOLOL HCL 10 MG TABLET PO SCH ×2 (09:00→16:59)
[2018-09-11] MEDS: CARVEDILOL 3.125 MG TABLET PO SCH ×2 (09:00→16:59)
[2018-09-11] MEDS: ARIPIPRAZOLE 5 MG TABLET PO SCH ×2 (09:20→16:59)
[2018-09-11] MEDS: LEVOTHYROXINE SODIUM 25 MCG TABLET PO SCH (09:20)
[2018-09-11] MEDS: ASPIRIN EC 81 MG TABLET.DR PO SCH (09:20)
[2018-09-11] MEDS: FUROSEMIDE 20 MG TABLET PO SCH (09:21)
[2018-09-11] MEDS: DIVALPROEX SODIUM 250 MG TABLET.DR PO SCH ×4 (09:21→21:08)
--- NOTE | 2018-09-11 09:42 | NUR ---
Yin ([phone]), [facility] drug abuse social worker, called the SW and stated that the pt is still a resident at the [facility] because she is part of the Misdemeanor Incompetence to inspecting supervisor Trial (MIST) program. Yin mentioned that the pt has a court order to take her medications and be compliant with treatment. She also mentioned that she is currently attempting to get her connected with [facility]. Pt has been seen by professionals in this treatment setting due to the referral that was sent out.
--- NOTE | 2018-09-11 09:46 | NUR ---
Evi ([phone]) from [facility] called the SW and stated that they have been involved with this pt because they are aware that once her program comes to a termination in September, she will need to be set up with services. Evi inquired about the pt's current state and then informed the SW that she would like to come visit the pt with her partner this week. SW stated that was acceptable.
--- NOTE | 2018-09-11 11:50 | NUR ---
SW met with Evi ([phone]) and Jena ([phone]) from [facility] together with the pt. They arrived to speak to the pt and evaluate her condition. [facility] asked the SW to look into sending referrals for outpatient programs because the pt will be released from her court ordered [facility] within the next month. They also asked the SW to keep them updated in terms of her discharge so that they can visit her once again.
--- NOTE | 2018-09-11 14:05 | NUR ---
RN NOTES UA SPECIMEN COLLECTED ON CLEAN CATCH.
--- NOTE | 2018-09-11 14:27 | NUR ---
Initial Discharge Plan: Pt is court ordered to return to her [facility] located at [address] [place] [id number]; ([phone]). Per pt, she would like to return once she is discharged from the hospital. DEENA will work with the pt and the MD regarding appropriate discharge planning. SW will form a safe and proper discharge.
[2018-09-11 15:26] LABS: APPEARANCE,URINE SL CLOUDY (CLEAR); BILIRUBIN,URINE NEGATIVE (NEGATIVE); BLOOD, URINE NEGATIVE Ery/uL (NEGATIVE); COLOR,URINE YELLOW (YELLOW); KETONES,URINE NEGATIVE (NEGATIVE); LEUKOCYTE ESTERASE ,URINE NEGATIVE (NEGATIVE); NITRITE, URINE NEGATIVE (NEGATIVE); PROTEIN,URINE NEGATIVE (NEGATIVE); UGLUCOSE NEGATIVE (NEGATIVE); UROBILINOGEN,URINE 0.2 EU/dL (0.2)
[2018-09-11 16:00] VITALS: BP 105/68
[2018-09-11] MEDS: BENZTROPINE MESYLATE (1 MG) 1 MG TABLET PO SCH (16:59)
--- NOTE | 2018-09-11 17:11 | NUR ---
PT. NOTED TO BE DISORGANIZED, IRRITABLE, HYPERVERBAL AND INAPPROPRIATE TO MALE STAFFS AND MALE PEERS. TELLING THEM SHE WILL SEXUAL PERFORM SEXUAL FAVOR TO THEM. PT. NEEDS CONSTANT REDIRECTION AND WILL CONTINUE TO MONITOR FOR SAFETY.
[2018-09-11 20:00] VITALS: BP 140/62
[2018-09-11] MEDS ORDERED: DIVALPROEX SODIUM 250 MG TABLET.DR PO SCH (21:00)
[2018-09-11] MEDS: ATORVASTATIN 10 MG TABLET PO SCH (21:08)
[2018-09-11] MEDS: TEMAZEPAM 7.5 MG CAPSULE PO PRN (21:08)
[2018-09-12] MEDS: LORAZEPAM 0.5 MG TABLET PO PRN ×2 (06:46→08:34)
[2018-09-12 08:00] VITALS: BP 131/68
[2018-09-12] MEDS: ASPIRIN EC 81 MG TABLET.DR PO SCH (08:34)
[2018-09-12] MEDS: ARIPIPRAZOLE 5 MG TABLET PO SCH (08:34)
[2018-09-12] MEDS: BENZTROPINE MESYLATE (1 MG) 1 MG TABLET PO SCH ×2 (08:34→17:00)
[2018-09-12] MEDS: DIVALPROEX SODIUM 250 MG TABLET.DR PO SCH (08:36)
[2018-09-12] MEDS: PROPRANOLOL HCL 10 MG TABLET PO SCH ×2 (08:37→17:00)
[2018-09-12] MEDS: FUROSEMIDE 20 MG TABLET PO SCH (08:37)
[2018-09-12] MEDS: CARVEDILOL 3.125 MG TABLET PO SCH ×2 (08:37→17:00)
[2018-09-12] MEDS: LEVOTHYROXINE SODIUM 25 MCG TABLET PO SCH (08:37)
--- NOTE | 2018-09-12 08:40 | NUR ---
GPS RN NOTE: RECEIVED PATIENT IN THE HALLWAY HYPERVERBAL, RESTLESS,DELUSIONAL, DISORGANIZED,TRYING TO AWOL THE UNIT ATIVAN 0.5 MG PO PRN GIVEN PER ORDER V/S STABLE, PATIENT AMBULATORY SELF CARE. ADMINISTERED SCHEDULED MEDICATION. SAFETY PRECAUTION MAINTAINED ALL THE TIME. ENCOURAGED TO ATTEND GROUP THERAPY.
--- NOTE | 2018-09-12 08:52 | NUR ---
Pt. 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 Addendum: 09/12/18 at 0856 by VALORIE BOGGS RN Notified Dr. Panda and ordered Maryellenyprexa 10 mg IM x1. Addendum: 09/12/18 at 0917 by VALORIE BOGGS RN Pt. agreed for the IM med.
[2018-09-12] MEDS ORDERED: OLANZAPINE 10 MG VIAL IM ONE ×2 (09:00→20:30)
--- NOTE | 2018-09-12 09:54 | NUR ---
UR Note: DEENA called Dominga Watson ([phone] ext [phone]), [facility] caseworker protective services, and left a clinical review on her voicemail. SW read the most recent progress note and went over the medications. DEENA requested coverage throughout the weekend and asked for a call back to state how many days of authorization the pt will receive.
--- NOTE | 2018-09-12 13:29 | NUR ---
Pt. is still highly agitated, screaming and yelling, banging the table and verbally abusive. Dr. Panda in the unit and ordered Ativan 2 mg IM x1 and pt. agreed for the shot.
[2018-09-12] MEDS ORDERED: LORAZEPAM INJ 2 MG/ML VIAL IM ONE (13:30)
--- NOTE | 2018-09-12 13:41 | NUR ---
UR Note: Dominga Watson ([phone] ext [phone]), [employer] foster care case manager, called the SW and left a voicemail stating that the pt will be authorized until 09/15/18 with a review due on 09/16/18.
--- NOTE | 2018-09-12 14:24 | NUR ---
DEENA called Evi ([phone]) from [facility] and informed her that the pt received inpatient stay authorization up until Saturday and then there will be another review for the pt on Saturday. She stated that she would like to visit the pt Saturday morning and the SW stated that was acceptable.
--- NOTE | 2018-09-12 14:25 | NUR ---
DEENA faxed a partial program referral to [facility] to the fax number: [phone].
[2018-09-12 16:00] VITALS: BP 102/79
[2018-09-12] MEDS: risperiDONE-M 0.5 MG TAB.RAPDIS PO SCH ×2 (17:00→18:31)
--- NOTE | 2018-09-12 18:37 | NUR ---
gps rn note: PT REFUSED 1700 MEDICATIONS EXPLAIN RISK AND BENEFITS PT THREW MEDICATIONS ON THE FLOOR, WILL CONTINUE MONITORING.
--- NOTE | 2018-09-12 19:14 | NUR ---
PATIENT HYPERVERBAL, LOUD, LABILE, SINGING, STATES, " I'M BAD, I DON'T LIKE YOU, GET ME OUT OF HERE, OH OH, TAPPING THE TABLE, GET OUT OF HERE, YOU ARE FIRED, SO ON AND SO ON.
[2018-09-12 20:00] VITALS: BP 111/68
--- NOTE | 2018-09-12 20:20 | NUR ---
GPS RN NOTE, PATIENT IS SCREAMING WHILE POSING DANGER TO OTHERS BY ATTEMPTING TO SCRATCH STAFF. PATIENT IS THREATENING PHYSICAL HARM TO STAFF AND ENVIRONMENT. ATTEMPTED REORIENTATION, OFFERED PO MEDICATION, AND ATTEMPTED DIVERSION WITH NO POSITIVE OUTCOME. PAGED DR PENNINGTON AND INFORMED HER OF MY FINDINGS. DR PENNINGTON ORDERED TO GIVE ZYPREXA 10 MG IM ONCE STAT. GAVE ZYPREXA 10MG IM IN PATIENT'S VENTROGLUTEAL WITH THE HELP OF STAFF AND SECURITY. PATIENT TOLERATED PROCEDURE WELL. ALL ORDERS NOTED AND CARRIED OUT. WILL CONTINUE TO MONITOR THIS PATIENT.
[2018-09-12] MEDS: LITHIUM CARBONATE 150 MG CAPSULE PO SCH (21:00)
[2018-09-12] MEDS: ATORVASTATIN 10 MG TABLET PO SCH (21:29)
--- NOTE | 2018-09-12 21:29 | NUR ---
PATIENT ASKED FOR SNACKS AND PROMISED TO BEHAVE. GAVE HER THE JUICE AND THE PILLS, LITHIUM AND ATORVASTATIN, SHE THREW THE PILLS AND JUICE, STATED IN A DEMANDING WAY," "GIVE ME THE SANDWICH." ASKED HER TO TAKE THE PILLS, STATED, "NO."
[2018-09-13] MEDS: LEVOTHYROXINE SODIUM 25 MCG TABLET PO SCH (07:30)
[2018-09-13 08:00] VITALS: BP 103/88
[2018-09-13] MEDS: risperiDONE-M 0.5 MG TAB.RAPDIS PO SCH ×2 (08:55→16:04)
[2018-09-13] MEDS: LITHIUM CARBONATE 150 MG CAPSULE PO SCH ×2 (08:55→21:13)
[2018-09-13] MEDS: BENZTROPINE MESYLATE (1 MG) 1 MG TABLET PO SCH ×2 (08:55→16:01)
[2018-09-13] MEDS: ASPIRIN EC 81 MG TABLET.DR PO SCH (08:59)
[2018-09-13] MEDS: CARVEDILOL 3.125 MG TABLET PO SCH ×2 (08:59→16:04)
[2018-09-13] MEDS: FUROSEMIDE 20 MG TABLET PO SCH (08:59)
[2018-09-13] MEDS: PROPRANOLOL HCL 10 MG TABLET PO SCH ×2 (08:59→16:04)
--- NOTE | 2018-09-13 11:49 | NUR ---
GPS RN NOTE: PT REFUSED BODY ASSESSMENT NOTED DISCOLORATION ON BOTH ARMS ,PT SCREAMING AND YELLING , SINGING AT TIMES, RESTLESS, HYPERVERBAL. PT THROW FOOD ON THE FLOOR , VERBALLY ABUSIVE TO STAFF . DR ROSE NOTIFIED NO NEW ORDERS AT THIS TIME.
[2018-09-13 16:00] VITALS: BP 117/80
[2018-09-13] MEDS: LORAZEPAM 0.5 MG TABLET PO PRN (19:31)
[2018-09-13 20:00] VITALS: BP 108/64
[2018-09-13] MEDS: ATORVASTATIN 10 MG TABLET PO SCH (21:13)
[2018-09-13] MEDS: TEMAZEPAM 7.5 MG CAPSULE PO PRN (22:42)
[2018-09-14 08:00] VITALS: BP 102/69
[2018-09-14] MEDS: LEVOTHYROXINE SODIUM 25 MCG TABLET PO SCH (08:33)
[2018-09-14] MEDS: CARVEDILOL 3.125 MG TABLET PO SCH ×2 (09:00→16:30)
[2018-09-14] MEDS: risperiDONE-M 0.5 MG TAB.RAPDIS PO SCH ×2 (09:01→16:30)
[2018-09-14] MEDS: LITHIUM CARBONATE 150 MG CAPSULE PO SCH ×2 (09:01→21:17)
[2018-09-14] MEDS: BENZTROPINE MESYLATE (1 MG) 1 MG TABLET PO SCH ×2 (09:02→16:29)
[2018-09-14] MEDS: ASPIRIN EC 81 MG TABLET.DR PO SCH (09:02)
[2018-09-14] MEDS: PROPRANOLOL HCL 10 MG TABLET PO SCH ×2 (09:07→16:30)
[2018-09-14] MEDS: FUROSEMIDE 20 MG TABLET PO SCH (09:08)
[2018-09-14] MEDS: LORAZEPAM 0.5 MG TABLET PO PRN ×2 (11:26→19:45)
[2018-09-14 16:00] VITALS: BP 119/68
--- NOTE | 2018-09-14 19:45 | NUR ---
GPS RN NOTE: PT. SCREAMING AND YELLING , VERY ANXIOUS AGGRESSIVE, CONFUSED, DISORGNIZED, RESTLESS, HYPERVERBAL. VERBALLY ABUSIVE TO STAFF ,BANGING HER ARMS .LEGS WITH ASIA CHAIR AND TRYING TO GET OUT THE GERICHAIR, PT. VERBALLY ABUSIVE TO STAFF , NOT FOLLOWING ANY REDIRECTIONS, ATIVAN 0.5 MG PO PRN GIVEN MD ORDERS ,WILL CONTINUE TO MONITOR.
--- NOTE | 2018-09-14 20:17 | NUR ---
GPS RN NOTE: PT REFUSED SKIN BODY ASSESSMENT AND PICTURE TAKEN, NOTED MULTIPLE DISCOLORATION ON BOTH ARMS AND BOTH LEGS ,PT SCREAMING AND YELLING , SINGING AT TIMES, RESTLESS, HYPERVERBAL. PT THROW WATER CUP ON THE DAY ROOM FLOOR , VERBALLY ABUSIVE TO STAFF , ENCOURAGED STILL REFUSED.
[2018-09-14 20:20] VITALS: BP 121/78
[2018-09-14] MEDS: ATORVASTATIN 10 MG TABLET PO SCH (21:17)
[2018-09-14] MEDS: TEMAZEPAM 7.5 MG CAPSULE PO PRN (23:02)
[2018-09-15] MEDS: LORAZEPAM 0.5 MG TABLET PO PRN (04:41)
--- NOTE | 2018-09-15 04:41 | NUR ---
GPS RN NOTE: PT. SCREAMING AND YELLING , SINGING AT TIMES, RESTLESS, HYPERVERBAL. VERBALLY ABUSIVE TO STAFF ,BANGING HER ARMS WITH ASIA CHAIR TABLE AND TRYING TO GET OUT THE GERICHAIR, PT. THROWING LINENEN ON THE FLOOR , VERBALLY ABUSIVE TO STAFF , NOT FOLLOWING ANY REDIRECTIONS, ATIVAN 0.5 MG PO PRN GIVEN MD ORDERS ,WILL CONTINUE TO MONITOR.
[2018-09-15 08:00] VITALS: BP 143/73
[2018-09-15] MEDS: ASPIRIN EC 81 MG TABLET.DR PO SCH (08:46)
[2018-09-15] MEDS: risperiDONE-M 0.5 MG TAB.RAPDIS PO SCH ×2 (08:46→17:00)
[2018-09-15] MEDS: LEVOTHYROXINE SODIUM 25 MCG TABLET PO SCH (08:46)
[2018-09-15] MEDS: LITHIUM CARBONATE 150 MG CAPSULE PO SCH ×2 (08:46→21:41)
[2018-09-15] MEDS: FUROSEMIDE 20 MG TABLET PO SCH (08:47)
[2018-09-15] MEDS: BENZTROPINE MESYLATE (1 MG) 1 MG TABLET PO SCH ×2 (08:47→17:01)
[2018-09-15] MEDS: PROPRANOLOL HCL 10 MG TABLET PO SCH ×2 (08:47→17:00)
[2018-09-15] MEDS: CARVEDILOL 3.125 MG TABLET PO SCH ×2 (08:47→17:01)
--- NOTE | 2018-09-15 11:28 | NUR ---
DEENA called Carlos ([phone]) from [facility] and was redirected to his voicemail which stated that he is out of the office until Saturday and was directed to call Mike ([phone]) for any questions.
--- NOTE | 2018-09-15 11:29 | NUR ---
DEENA called Mike ([phone]) from the [facility] and left him a voicemail stating that the SW has received a call from Carlos but now he is on vacation and the SW would like to know if the pt that was referred to them was accepted or not. Addendum: 09/15/18 at 1132 by GENOVEVA SHAFFER Mike ([phone])
[2018-09-15 16:00] VITALS: BP 110/53
[2018-09-15 19:42] VITALS: BP 102/67
[2018-09-15] MEDS: ATORVASTATIN 10 MG TABLET PO SCH (21:40)
[2018-09-15] MEDS: TEMAZEPAM 7.5 MG CAPSULE PO PRN (21:41)
[2018-09-16] MEDS: LEVOTHYROXINE SODIUM 25 MCG TABLET PO SCH (07:30)
[2018-09-16 07:56] LABS: BASOPHILS % (AUTO) 0.3 % (0.0-2.0); EOSINOPHILS % (AUTO) 1.6 % (0.0-6.0); HEMATOCRIT 37 % (33-45); HEMOGLOBIN 12.4 g/dL (11.5-14.8); LYMPHOCYTES # (AUTO) 1.6 /CMM (0.8-4.8); LYMPHOCYTES % (AUTO) 25.3 % (20.0-44.0); MEAN CORPUSCULAR HGB CONC 33 g/dl (31.0-36.0); MEAN CORPUSCULAR VOLUME 96 fL (82-100); MONOCYTES # (AUTO) 0.4 /CMM (0.1-1.30); NEUTROPHILS # (AUTO) 4.1 /CMM (1.8-8.9); NEUTROPHILS % (AUTO) 65.8 % (43.0-81.0); PLATELET COUNT (AUTO) 204 /CMM (150-450); RED BLOOD CELL COUNT(AUTO) 3.85 MIL/uL (4.0-5.2); WHITE BLOOD COUNT (AUTO) 6.2 K/uL (4.3-11.0)
[2018-09-16 08:00] VITALS: BP 100/63
[2018-09-16 08:12] LABS: ALBUMIN 3.7 g/dL (3.4-5.0); BILIRUBIN,TOTAL 0.7 mg/dL (0.2-1.0); POTASSIUM 3.6 mmol/L (3.5-5.1); TOTAL PROTEIN, SERUM 7.7 g/dL (6.4-8.2)
[2018-09-16] MEDS: FUROSEMIDE 20 MG TABLET PO SCH (09:00)
[2018-09-16] MEDS: BENZTROPINE MESYLATE (1 MG) 1 MG TABLET PO SCH ×2 (09:00→16:43)
[2018-09-16] MEDS: LITHIUM CARBONATE 150 MG CAPSULE PO SCH ×2 (09:00→21:05)
[2018-09-16] MEDS: CARVEDILOL 3.125 MG TABLET PO SCH ×2 (09:00→16:43)
[2018-09-16] MEDS: ASPIRIN EC 81 MG TABLET.DR PO SCH (09:00)
[2018-09-16] MEDS: PROPRANOLOL HCL 10 MG TABLET PO SCH ×2 (09:00→16:43)
--- NOTE | 2018-09-16 09:16 | NUR ---
GPS.RN. PT VERY SLEEPY, AWOKEN BY TOUCH. PT REFUSING TO TAKE MEDICATIONS AT THIS TIME.
--- NOTE | 2018-09-16 10:40 | NUR ---
GPS.RN. PT REMAINS SLEEPY AND REFUSING MEDICATIONS. PT ENCOURAGED TO DRINK MORE WATER R/T LABS. PT CURRENTLY REFUSING. MD HINES MADE AWARE.
--- NOTE | 2018-09-16 11:34 | NUR ---
UR Note: DEENA called Dominga Watson [phone] ext [phone]), [facility] case investigator, and left a clinical review on her voicemail. DEENA read the most recent progress note and went over the medications. DEENA requested a few additional days of authorization.
--- NOTE | 2018-09-16 11:35 | NUR ---
DEENA called Evi ([phone]) from [facility] and informed her that the pt is still currently a pt in the hospital and that she may come assess her today. DEENA also informed her that the SW called the outpatient program that the pt was referred to and the head of the program is currently on vacation. DEENA stated that she left a message for the person who is covering him but has not received a call back yet.
--- NOTE | 2018-09-16 12:31 | NUR ---
GPS RN. PT NOW AWAKE AND UP IN COMMON ROOM. PT ACTING BIZARRE, OVER FAMILIAR WITH OTHER PTS, TRYING TO BLOCK T.V FROM VIEWERS AND SINGING. .
[2018-09-16] MEDS: risperiDONE-M 0.5 MG TAB.RAPDIS PO SCH (12:45)
--- NOTE | 2018-09-16 15:31 | NUR ---
UR Note: DEENA called Dominga Watson ([phone] ext [phone]), [facility] continuous pillowcase cutter, and left a message on her voicemail stating that the SW left a clinical earlier in the day and would like to know how many days the pt will be authorized.
[2018-09-16 16:00] VITALS: BP 101/74
[2018-09-16 20:15] VITALS: BP 128/75
[2018-09-16] MEDS: ATORVASTATIN 10 MG TABLET PO SCH (21:05)
[2018-09-16] MEDS: risperiDONE 1 MG TABLET PO SCH (21:15)
[2018-09-16] MEDS: TEMAZEPAM 7.5 MG CAPSULE PO PRN (23:07)
--- NOTE | 2018-09-16 23:15 | NUR ---
GPS RN NOTE: PATIENT UNABLE TO SLEEP, WALKING IN HALLWAYS. RESTORIL 7.5MG 1 TAB ORAL GIVEN PER MD ORDER. WILL CONTINUE TO MONITOR.
[2018-09-17 07:40] LABS: CALCIUM, SERUM 10.1 mg/dL (8.5-10.1); CREATININE 0.9 mg/dL (0.6-1.3); POTASSIUM 3.5 mmol/L (3.5-5.1)
[2018-09-17 08:00] VITALS: BP 113/50
--- NOTE | 2018-09-17 08:35 | NUR ---
UR Note: Dominga Watson ([phone] ext [phone]), [facility] renal case manager, called the SW and left a voicemail stating that the pt will be authorized until 09/18/18 with a review due on 09/19/18. She stated that there is additional information that she would like to receive such as information regarding the pts treatment plan, family involvement, and discharge plan. She also stated that she would like to know why the pt is on [place] and what her levels are as well as what her Depakote levels are.
[2018-09-17] MEDS: PROPRANOLOL HCL 10 MG TABLET PO SCH (08:37)
[2018-09-17] MEDS: risperiDONE-M 0.5 MG TAB.RAPDIS PO SCH ×3 (08:37→21:10)
[2018-09-17] MEDS: LITHIUM CARBONATE 150 MG CAPSULE PO SCH ×3 (08:38→17:34)
[2018-09-17] MEDS: ASPIRIN EC 81 MG TABLET.DR PO SCH (08:38)
[2018-09-17] MEDS: CARVEDILOL 3.125 MG TABLET PO SCH ×2 (08:38→17:00)
[2018-09-17] MEDS: LEVOTHYROXINE SODIUM 25 MCG TABLET PO SCH (08:38)
[2018-09-17] MEDS: BENZTROPINE MESYLATE (1 MG) 1 MG TABLET PO SCH ×2 (08:38→17:35)
[2018-09-17] MEDS ORDERED: risperiDONE 1 MG TABLET PO ONE (10:00)
[2018-09-17] MEDS: FUROSEMIDE 20 MG TABLET PO SCH (10:30)
--- NOTE | 2018-09-17 13:53 | NUR ---
Ila King ([phone]) from [facility] called the SW and asked for an update regarding the pt in terms of her discharge. SW stated that the insurance company authorized a few more days and the plan is for her to return to her [facility].
--- NOTE | 2018-09-17 13:56 | NUR ---
DEENA called Carlos ([phone]) from [facility] and left a voicemail for him stating that she called Mike but did not get in touch with him so the SW stated that she would appreciate a call back from him regarding the pt when he returns from his vacation.
--- NOTE | 2018-09-17 14:35 | NUR ---
DEENA called Evi ([phone]) from [facility] and left her a voicemail stating that the pt is authorized for inpatient stay until Saturday and the SW will be asking for additional days the following day.
[2018-09-17 16:00] VITALS: BP 100/53
[2018-09-17] MEDS ORDERED: PROPRANOLOL 20 MG TABLET PO SCH (16:55)
[2018-09-17] MEDS: PROPRANOLOL 20 MG TABLET PO SCH (17:00)
[2018-09-17 20:01] VITALS: BP 107/63
[2018-09-17] MEDS: ATORVASTATIN 10 MG TABLET PO SCH (21:09)
[2018-09-17] MEDS: risperiDONE 1 MG TABLET PO SCH (22:00)
--- NOTE | 2018-09-17 22:24 | NUR ---
GPS RN NOTE, PATIENT REFUSED RISPERDAL 2 MG PO HS. OFFERED THREE TIME S AND STILL PATIENT REFUSED. EDUCATED PATIENT ON RISKS AND BENEFITS OF TAKING AND REFUSING RISPERDAL. WILL CONTINUE TO MONITOR THIS PATIENT.
[2018-09-18] MEDS: TEMAZEPAM 7.5 MG CAPSULE PO PRN (00:17)
--- NOTE | 2018-09-18 01:24 | NUR ---
RN NOTE: PATIENT NOTED WITH CONSTANT TALKING TO HERSELF AND SINGING. WHEN ASKED, SHE STATE SHE WAS TALKING TO GOD. PATIENT ASKED FOR MEDICATION TO HELP HER SLEEP. PRN RESTORIL ADMINISTERED AT 0017. UPON REASSESSMENT, PATIENT IS CALM AND QUIET IN BED BUT STILL AWAKE.
[2018-09-18] MEDS: LORAZEPAM 0.5 MG TABLET PO PRN (03:27)
--- NOTE | 2018-09-18 03:27 | NUR ---
RN NOTE: PATIENT FOUND IN BED WITH BED SOAKED IN URINE. ORAL CARE PROVIDED, AND LINEN CHANGED COMPLETELY. PATIENT STARTED WITH SPEAKING LOUDLY AGAIN, PRN ATIVAN 0.5 MG ADMINISTERED AND UPON REASSESSMENT IN 30 MINUTES, PATIENT NOTED TO BE QUIET AND CALM. WILL CONTINUE TO CHECK THE PATIENT Q 15 MINUTES AND KEEP THE ENVIRONMENT SAFE AND CALMING WITH BED AT LOWEST POSITION AND LIGHT DIM
--- NOTE | 2018-09-18 06:39 | NUR ---
RN NOTE: SKIN ASSESSMENT DONE DURING ORAL CARE AND SKIN CARE AND NO SKIN ISSUES SUCH DISCOLORATION, ABRASION, TEAR OR EDEMA NOTED AT THIS TIME Addendum: 09/18/18 at 0655 by LEROY JIMENEZ RN A FEW SCATTERED AREAS OF BRUISING NOTED ON BLEs
[2018-09-18 08:00] VITALS: BP 125/63
[2018-09-18] MEDS: LITHIUM CARBONATE 150 MG CAPSULE PO SCH ×4 (08:00→17:00)
[2018-09-18 08:16] LABS: POTASSIUM 3.6 mmol/L (3.5-5.1)
[2018-09-18] MEDS: ASPIRIN EC 81 MG TABLET.DR PO SCH (08:33)
[2018-09-18] MEDS: LEVOTHYROXINE SODIUM 25 MCG TABLET PO SCH (08:34)
[2018-09-18] MEDS: BENZTROPINE MESYLATE (1 MG) 1 MG TABLET PO SCH ×3 (08:34→17:00)
[2018-09-18] MEDS: CARVEDILOL 3.125 MG TABLET PO SCH ×3 (08:34→17:00)
[2018-09-18] MEDS: risperiDONE-M 0.5 MG TAB.RAPDIS PO SCH ×3 (08:37→12:18)
[2018-09-18] MEDS: PROPRANOLOL 20 MG TABLET PO SCH ×3 (08:38→17:00)
--- NOTE | 2018-09-18 10:14 | NUR ---
RN-CO: Patient is very psychotic, banging tables, yelling and screaming.Patient is also threatening peers and remains unpredictable.
--- NOTE | 2018-09-18 10:26 | NUR ---
Pt. is aggressive, throwing water to the staffs, combative, verbally abusive and uncooperative to care and refusing meds. Addendum: 09/18/18 at 1038 by [address]ORIE BOGGS RN Dr. Panda notified and ordered Zyprexa 10 mg IM x1.
[2018-09-18] MEDS ORDERED: OLANZAPINE 10 MG VIAL IM ONE (10:30)
[2018-09-18] MEDS: clonazePAM 0.5 MG TABLET PO SCH ×2 (14:22→21:00)
--- NOTE | 2018-09-18 14:34 | NUR ---
UR Note: DEENA called Dominga Watson [phone] ext [phone]), [facility] disease case manager rn, and left a clinical review on her voicemail. DEENA read the most recent progress note and went over the medications. DEENA requested a few additional days of authorization.
--- NOTE | 2018-09-18 15:41 | NUR ---
Pt. refused labs
[2018-09-18 16:00] VITALS: BP 133/96
--- NOTE | 2018-09-18 17:38 | NUR ---
PT. REFUSED DUE MEDS FOR 1699, WAS EXPLAINED ON THE IMPORTANCE AND PT. STILL REFUSING.
[2018-09-18 20:00] VITALS: BP 112/84
[2018-09-18] MEDS: ATORVASTATIN 10 MG TABLET PO SCH (22:00)
[2018-09-18] MEDS: risperiDONE 1 MG TABLET PO SCH (22:00)
--- NOTE | 2018-09-19 01:27 | NUR ---
GPS/RN PATIENT IS SLEEPING AT THIS TIME, AROUSES EASILY, APPEAR CALM AND COMFORTABLE, NO SIGNS 0F DISTRESS NOTED, SITTER AT BEDSIDE, WILL CONTINUE TO MONITOR.
[2018-09-19 06:41] LABS: BASOPHILS % (AUTO) 0.1 % (0.0-2.0); EOSINOPHILS % (AUTO) 0.5 % (0.0-6.0); HEMATOCRIT 42 % (33-45); LYMPHOCYTES # (AUTO) 1.5 /CMM (0.8-4.8); LYMPHOCYTES % (AUTO) 14.7 % (20.0-44.0); MEAN CORPUSCULAR HGB CONC 33 g/dl (31.0-36.0); MEAN CORPUSCULAR VOLUME 96 fL (82-100); MONOCYTES # (AUTO) 0.9 /CMM (0.1-1.30); MONOCYTES % (AUTO) 8.9 % (2.0-12.0); NEUTROPHILS # (AUTO) 7.6 /CMM (1.8-8.9); NEUTROPHILS % (AUTO) 75.8 % (43.0-81.0); PLATELET COUNT (AUTO) 191 /CMM (150-450)
[2018-09-19 07:21] LABS: ALBUMIN 3.6 g/dL (3.4-5.0); BILIRUBIN,TOTAL 0.8 mg/dL (0.2-1.0); CALCIUM, SERUM 10.5 mg/dL (8.5-10.1); POTASSIUM 3.6 mmol/L (3.5-5.1)
[2018-09-19 08:00] VITALS: BP 109/77
[2018-09-19] MEDS: PROPRANOLOL 20 MG TABLET PO SCH ×2 (09:00→17:00)
[2018-09-19] MEDS: clonazePAM 0.5 MG TABLET PO SCH ×3 (09:30→21:30)
[2018-09-19] MEDS: LEVOTHYROXINE SODIUM 25 MCG TABLET PO SCH (09:30)
[2018-09-19] MEDS: risperiDONE-M 0.5 MG TAB.RAPDIS PO SCH ×2 (09:30→13:08)
[2018-09-19] MEDS: LITHIUM CARBONATE 150 MG CAPSULE PO SCH ×2 (09:31→17:18)
[2018-09-19] MEDS: BENZTROPINE MESYLATE (1 MG) 1 MG TABLET PO SCH ×2 (09:41→17:18)
[2018-09-19] MEDS: ASPIRIN EC 81 MG TABLET.DR PO SCH (09:42)
[2018-09-19] MEDS: CARVEDILOL 3.125 MG TABLET PO SCH ×2 (09:42→17:00)
--- NOTE | 2018-09-19 10:20 | NUR ---
DEENA called Carlos ([phone]) from [facility] and followed up on the referral that was sent the previous week. DEENA stated that the pt is part of the [facility] program and will be discharged from the [facility] sometime the following month. DEENA also stated that the pt is involved with [facility] but that they are the ones who wanted a partial program for the pt. DEENA stated that she would provide them with Carlos's contact information.
--- NOTE | 2018-09-19 10:21 | NUR ---
DEENA called Yin ([phone]), [facility] social worker masters, and left her a voicemail stating that the pts progress is declining and that she has been refusing her medications. DEENA stated that we are not looking to discharge the pt until sometime next week depending on the insurance and the SW stated that if she has any information or any questions to please call back.
--- NOTE | 2018-09-19 10:25 | NUR ---
DEENA called Evi ([phone]) from [facility] and left her a voicemail stating that the pts progress has been declining and that the pt will most likely receive additional days of authorization. DEENA also stated that she has been in contact with Carlos from [facility] and they stated that the pts insurance will pay for the program and they are accepting her. DEENA provided Evi with the information regarding the outpatient program so that contact can continue once the pt is discharged from the hospital.
--- NOTE | 2018-09-19 10:51 | NUR ---
Yin ([phone]), [facility] social human services assistants, called the SW and asked for updates regarding the pt. When the SW mentioned that the pt has not been taking her medications she stated that the pt is court ordered to take her medications and be compliant with treatment. SW asked for that paperwork to be sent over so that the hospital can have a record of that in case the [place] hearing is unnecessary. She stated that she would email the paperwork to the SW.
--- NOTE | 2018-09-19 19:50 | NUR ---
RN INITIAL NOTES: RECEIVED PT IN ROOM, SITTER AT BEDSIDE, DENIES ANY PAIN OR DISCOMFORT. PT DENIES ANY SI/HI, OR PLAN OF HURTING HERSELF. PT HYPERACTIVE, REFUSING MEDS OCCASIONALLY PER REPORT, TENDS TO BE AGGRESSIVE AND COMBATIVE. PT EASILY GETS AGITATED. CURSING A LOT. SAFETY PRECAUTIONS FOR FALL INITIATED, SIDE RAILS UP X2 FOR SAFETY, BED BRAKES ENGAGED, WILL CONTINUE TO MONITOR PT [id number] FOR SAFETY AND CHANGES IN BEHAVIOR.
[2018-09-19 20:00] VITALS: BP 116/56
[2018-09-19] MEDS: ATORVASTATIN 10 MG TABLET PO SCH (21:30)
[2018-09-19] MEDS: risperiDONE 1 MG TABLET PO SCH (21:30)
--- NOTE | 2018-09-19 21:37 | NUR ---
rn notes: pt took all night time schedule meds, witnessed by cisco/cristel pimentel
[2018-09-20 08:00] VITALS: BP 112/66
[2018-09-20] MEDS: LITHIUM CARBONATE 150 MG CAPSULE PO SCH (08:55)
[2018-09-20] MEDS: risperiDONE-M 0.5 MG TAB.RAPDIS PO SCH ×2 (08:55→14:01)
[2018-09-20] MEDS: BENZTROPINE MESYLATE (1 MG) 1 MG TABLET PO SCH ×2 (08:55→16:41)
[2018-09-20] MEDS: clonazePAM 0.5 MG TABLET PO SCH ×3 (08:55→21:17)
[2018-09-20] MEDS: PROPRANOLOL 20 MG TABLET PO SCH ×2 (08:56→16:40)
[2018-09-20] MEDS: LEVOTHYROXINE SODIUM 25 MCG TABLET PO SCH (08:56)
[2018-09-20] MEDS: CARVEDILOL 3.125 MG TABLET PO SCH ×2 (08:56→16:40)
[2018-09-20] MEDS: ASPIRIN EC 81 MG TABLET.DR PO SCH (08:56)
[2018-09-20 16:00] VITALS: BP 126/72
[2018-09-20] MEDS: LITHIUM CARBONATE (300 MG CAP) 300 MG CAPSULE PO SCH (16:40)
[2018-09-20 20:00] VITALS: BP 107/66
[2018-09-20] MEDS: risperiDONE 1 MG TABLET PO SCH (21:29)
[2018-09-20] MEDS: ATORVASTATIN 10 MG TABLET PO SCH (21:29)
[2018-09-21 08:00] VITALS: BP 105/77
[2018-09-21] MEDS: risperiDONE-M 0.5 MG TAB.RAPDIS PO SCH ×2 (08:41→12:50)
[2018-09-21] MEDS: LITHIUM CARBONATE (300 MG CAP) 300 MG CAPSULE PO SCH ×2 (08:41→17:23)
[2018-09-21] MEDS: BENZTROPINE MESYLATE (1 MG) 1 MG TABLET PO SCH ×2 (08:41→17:23)
[2018-09-21] MEDS: LEVOTHYROXINE SODIUM 25 MCG TABLET PO SCH (08:41)
[2018-09-21] MEDS: clonazePAM 0.5 MG TABLET PO SCH ×3 (08:41→20:39)
[2018-09-21] MEDS: ASPIRIN EC 81 MG TABLET.DR PO SCH (08:44)
[2018-09-21] MEDS: PROPRANOLOL 20 MG TABLET PO SCH ×2 (08:44→17:26)
[2018-09-21] MEDS: CARVEDILOL 3.125 MG TABLET PO SCH ×2 (08:44→17:23)
[2018-09-21 16:00] VITALS: BP 120/71
[2018-09-21 20:16] VITALS: BP 92/65
[2018-09-21] MEDS: risperiDONE 1 MG TABLET PO SCH (21:25)
[2018-09-21] MEDS: ATORVASTATIN 10 MG TABLET PO SCH (21:25)
--- NOTE | 2018-09-22 06:38 | NUR ---
Refused weekly skin assessment. offered x3 and still refused.
[2018-09-22] MEDS: LEVOTHYROXINE SODIUM 25 MCG TABLET PO SCH (07:30)
[2018-09-22 08:00] VITALS: BP 108/64
[2018-09-22] MEDS: clonazePAM 0.5 MG TABLET PO SCH ×3 (08:00→20:35)
[2018-09-22] MEDS: risperiDONE-M 0.5 MG TAB.RAPDIS PO SCH ×2 (08:00→12:18)
[2018-09-22] MEDS: PROPRANOLOL 20 MG TABLET PO SCH ×2 (09:00→16:25)
[2018-09-22] MEDS: BENZTROPINE MESYLATE (1 MG) 1 MG TABLET PO SCH ×2 (09:00→16:25)
[2018-09-22] MEDS: ASPIRIN EC 81 MG TABLET.DR PO SCH (09:00)
[2018-09-22] MEDS: CARVEDILOL 3.125 MG TABLET PO SCH ×2 (09:00→16:26)
[2018-09-22] MEDS: LITHIUM CARBONATE (300 MG CAP) 300 MG CAPSULE PO SCH ×2 (09:00→16:25)
--- NOTE | 2018-09-22 09:10 | NUR ---
UR Note: Dominga Watson ([phone] ext [phone]), [employer] case liner, called the SW and left a voicemail and she stating that the pt is authorized from 09/22/18 and that a review will be due on 09/23/18.
--- NOTE | 2018-09-22 09:14 | NUR ---
DEENA returned the call from Evi ([phone]) from [facility] and stated that the pt is still currently in the hospital and that there is a potential discharge date for tomorrow. DEENA also informed her that she received information from [facility] that the pt was accepted and DEENA informed Evi that she provided Carlos with her phone number so that they can coordinate once the pt is discharged from the hospital.
--- NOTE | 2018-09-22 14:57 | NUR ---
UR Note: DEENA called Dominga Watson ([phone] ext [phone]), [facility] case assistant, and left a clinical review on her voicemail. DEENA read the most recent progress note and went over the medications. DEENA requested a few additional days of authorization.
--- NOTE | 2018-09-22 14:59 | NUR ---
DEENA returned the call from Evi ([phone]) from [facility] and left a message for her on her voicemail stating that the pt is still currently in the hospital and that the SW conducted a review but has not heard from the insurance company at this time.
[2018-09-22 16:00] VITALS: BP 100/70
[2018-09-22] MEDS ORDERED: risperiDONE 1 MG TABLET PO ONE (20:00)
[2018-09-22 20:09] VITALS: BP 100/68
--- NOTE | 2018-09-22 21:00 | NUR ---
GPS RN NOTES REFUSED ALL HER MEDS,CURSING,THROWING THINGS ON THE FLOOR.
[2018-09-22] MEDS: ATORVASTATIN 10 MG TABLET PO SCH (22:00)
[2018-09-23] MEDS: LEVOTHYROXINE SODIUM 25 MCG TABLET PO SCH (07:30)
[2018-09-23 08:00] VITALS: BP 104/67
[2018-09-23] MEDS: clonazePAM 0.5 MG TABLET PO SCH (08:00)
[2018-09-23] MEDS: CARVEDILOL 3.125 MG TABLET PO SCH ×2 (09:00→17:00)
[2018-09-23] MEDS ORDERED: [UNRECOGNIZED DRUG - OTHER] XX ONE (09:00)
[2018-09-23] MEDS: LITHIUM CARBONATE (300 MG CAP) 300 MG CAPSULE PO SCH ×2 (09:10→17:47)
[2018-09-23] MEDS: BENZTROPINE MESYLATE (1 MG) 1 MG TABLET PO SCH ×2 (09:11→17:47)
[2018-09-23] MEDS: ASPIRIN EC 81 MG TABLET.DR PO SCH (09:11)
[2018-09-23] MEDS: PROPRANOLOL 20 MG TABLET PO SCH (09:14)
[2018-09-23] MEDS ORDERED: PROPRANOLOL HCL 10 MG TABLET PO ONE (12:41)
--- NOTE | 2018-09-23 14:30 | NUR ---
UR Note: Dominga Watson ([phone] ext [phone]), [employer] spring encaser, called the SW and left a voicemail stating that the pt is authorized until 09/25/18.
[2018-09-23 15:59] VITALS: BP 90/59
[2018-09-23] MEDS: PROPRANOLOL HCL 10 MG TABLET PO SCH (17:00)
[2018-09-23 19:49] VITALS: BP 96/68
[2018-09-23 20:00] VITALS: BP 96/68
[2018-09-23] MEDS: ATORVASTATIN 10 MG TABLET PO SCH (21:56)
[2018-09-24 08:00] VITALS: BP 99/62
[2018-09-24] MEDS: ASPIRIN EC 81 MG TABLET.DR PO SCH (08:47)
[2018-09-24] MEDS: BENZTROPINE MESYLATE (1 MG) 1 MG TABLET PO SCH ×2 (08:47→16:48)
[2018-09-24] MEDS: clonazePAM 0.5 MG TABLET PO SCH (08:47)
[2018-09-24] MEDS: LITHIUM CARBONATE (300 MG CAP) 300 MG CAPSULE PO SCH ×2 (08:48→16:48)
[2018-09-24] MEDS: PROPRANOLOL HCL 10 MG TABLET PO SCH ×2 (08:48→16:53)
[2018-09-24] MEDS: LEVOTHYROXINE SODIUM 25 MCG TABLET PO SCH (08:48)
[2018-09-24] MEDS: CARVEDILOL 3.125 MG TABLET PO SCH ×2 (08:48→16:49)
--- NOTE | 2018-09-24 10:28 | NUR ---
DEENA returned the call of Ila S ([phone]) from the [facility] and she asked for updates regarding the pt. DEENA stated that the pt is going to be discharged the following day and she stated that her drivers can pick and shovel worker the pt around 11AM. She also stated that she would like the SW to send her some notes regarding the pt and her current state. DEENA stated that she would.
--- NOTE | 2018-09-24 10:57 | NUR ---
DEENA sent the appropriate paperwork for the pt to Ila ([phone]) at the [facility] via a scanned document to her email.
--- NOTE | 2018-09-24 15:29 | NUR ---
DEENA called Ila King ([phone]) from the [facility] and informed her that the pts psychiatrist would like to discharge the pt on Saturday instead of tomorrow like it was mentioned previously due to her showing slight improvements with each day.
--- NOTE | 2018-09-24 15:30 | NUR ---
DEENA called Evi ([phone]) from [facility] and informed her that the pt is going to be discharged on Saturday at 11am and the DEENA informed her that the appropriate paperwork has been sent over to Ila at the [facility] and that she has also been provided with the information about the partial program that the pt was accepted into.
[2018-09-24 16:00] VITALS: BP 100/61
[2018-09-24 19:58] VITALS: BP 102/76
[2018-09-24] MEDS: TEMAZEPAM 7.5 MG CAPSULE PO PRN (20:36)
[2018-09-24] MEDS: ATORVASTATIN 10 MG TABLET PO SCH (21:23)
--- NOTE | 2018-09-24 21:24 | NUR ---
TEMAZEPAM 7.5 MG CAP PO GIVEN FOR SLEEP.
[2018-09-25] MEDS: LEVOTHYROXINE SODIUM 25 MCG TABLET PO SCH (07:57)
[2018-09-25 08:00] VITALS: BP 106/72
[2018-09-25] MEDS: CARVEDILOL 3.125 MG TABLET PO SCH ×2 (08:07→16:28)
[2018-09-25] MEDS: BENZTROPINE MESYLATE (1 MG) 1 MG TABLET PO SCH ×2 (08:07→16:28)
[2018-09-25] MEDS: clonazePAM 0.5 MG TABLET PO SCH (08:07)
[2018-09-25] MEDS: LITHIUM CARBONATE (300 MG CAP) 300 MG CAPSULE PO SCH ×2 (08:07→16:28)
[2018-09-25] MEDS: ASPIRIN EC 81 MG TABLET.DR PO SCH (08:07)
[2018-09-25] MEDS: PROPRANOLOL HCL 10 MG TABLET PO SCH ×2 (08:11→16:27)
[2018-09-25 12:26] LABS: BASOPHILS % (AUTO) 0.2 % (0.0-2.0); EOSINOPHILS % (AUTO) 3.2 % (0.0-6.0); HEMATOCRIT 41 % (33-45); HEMOGLOBIN 13.7 g/dL (11.5-14.8); LYMPHOCYTES # (AUTO) 1.4 /CMM (0.8-4.8); LYMPHOCYTES % (AUTO) 18.7 % (20.0-44.0); MEAN CORPUSCULAR HGB CONC 33 g/dl (31.0-36.0); MEAN CORPUSCULAR VOLUME 96 fL (82-100); MONOCYTES # (AUTO) 0.4 /CMM (0.1-1.30); MONOCYTES % (AUTO) 5.4 % (2.0-12.0); NEUTROPHILS # (AUTO) 5.4 /CMM (1.8-8.9); NEUTROPHILS % (AUTO) 72.5 % (43.0-81.0); PLATELET COUNT (AUTO) 227 /CMM (150-450); RED BLOOD CELL COUNT(AUTO) 4.31 MIL/uL (4.0-5.2); WHITE BLOOD COUNT (AUTO) 7.4 K/uL (4.3-11.0)
[2018-09-25 12:42] LABS: ALBUMIN 3.6 g/dL (3.4-5.0); BILIRUBIN,TOTAL 0.5 mg/dL (0.2-1.0); CALCIUM, SERUM 10.4 mg/dL (8.5-10.1); POTASSIUM 4.3 mmol/L (3.5-5.1); TOTAL PROTEIN, SERUM 8.3 g/dL (6.4-8.2)
[2018-09-25 16:00] VITALS: BP 128/72
--- NOTE | 2018-09-25 19:20 | NUR ---
LYING IN BED, CALM AND QUIET. NO APPARENT DISTRESS NOTED. WILL CONTINUE TO MONITOR.
[2018-09-25 20:00] VITALS: BP 97/69
[2018-09-25] MEDS: TEMAZEPAM 7.5 MG CAPSULE PO PRN (20:16)
--- NOTE | 2018-09-25 20:17 | NUR ---
TEMAZEPAM 7.5 MG CAP PO GIVEN FOR SLEEP.
[2018-09-25] MEDS: ATORVASTATIN 10 MG TABLET PO SCH (21:15)
--- NOTE | 2018-09-25 22:00 | NUR ---
2 UNITS REGULAR INSULIN SC ADMINISTERED, HS SNACKS GIVEN, SANDWICH AND 240 ML JUICE.
[2018-09-26 08:00] VITALS: BP 100/59
[2018-09-26] MEDS: CARVEDILOL 3.125 MG TABLET PO SCH (09:00)
[2018-09-26 09:09] VITALS: BP 100/59
[2018-09-26] MEDS: LEVOTHYROXINE SODIUM 25 MCG TABLET PO SCH (09:09)
[2018-09-26] MEDS: PROPRANOLOL HCL 10 MG TABLET PO SCH (09:09)
[2018-09-26] MEDS: BENZTROPINE MESYLATE (1 MG) 1 MG TABLET PO SCH (09:10)
[2018-09-26] MEDS: LITHIUM CARBONATE (300 MG CAP) 300 MG CAPSULE PO SCH (09:10)
[2018-09-26] MEDS: ASPIRIN EC 81 MG TABLET.DR PO SCH (09:10)
--- NOTE | 2018-09-26 10:54 | NUR ---
PATIENT DENIES SUICIDAL IDEATION /HOMICIDAL IDEATION/ AND AUDITORY HALLUCINATIONS. INFORMED PSYCH AND MEDICAL DOCTOR. PATIENT DISCHARGED IN STABLE CONDITION. DOCTOR ADITI DISCONTINUED HOLD AND DISCHARGED PATIENT. HOME MEDS AND ALL BELONGINGS WERE RETURNED TO THE PATIENT.
--- NOTE | 2018-09-26 11:44 | NUR ---
Discharge Note: Pt was discharged to the [facility] located at [address] [address]; ([phone]). Pt was picked up by the drivers from the facility around 11AM. Upon discharge, the pt appeared to be in a manic mood and presented with a calm affect. Pt denied both suicidal and homicidal ideation as well as auditory and visual hallucinations. Pt stated that she accepts the discharge plan of her returning to the [facility]. Pt was then informed that once she is released from the [facility], she will go to [facility]. Pt will currently be under the care of her psychiatrist, Dr. Chuy Macdonald, located at [address] [place] [id number]; ) and her cheese tester, Dr. Walker Benoit, located at [address] [address]; ).
--- NOTE | 2018-09-26 15:45 | NUR ---
UR Note: DEENA called Dominga Watson ([phone] ext [phone]), [employer] telephonic case manager, and left a discharge clinical on her voicemail.
== END 2018-09-26 11:00 | disposition home or self-care (01) | DRG 885 ==
LOC: GPS 00:39
PROVIDERS: ADMIT Psychiatry & Neurology Psychosomatic Medicine; ATTEND Nurse Practitioner Acute Care
DX: F25.0 Schizoaffective disorder, bipolar type (principal); I11.0 Hypertensive heart disease with heart failure; F29 Unspecified psychosis not due to a substance or known physiological condition; F41.9 Anxiety disorder, unspecified; E78.5 Hyperlipidemia, unspecified; E03.9 Hypothyroidism, unspecified; E86.0 Dehydration; I50.9 Heart failure, unspecified; K21.9 Gastro-esophageal reflux disease without esophagitis; Z73.6 Limitation of activities due to disability
CPT/HCPCS: 36415; 71045-TC; 80048-TC; 80053-TC; 80061-TC; 81000-TC; 84443-TC; 85025-TC; 87081-TC; J2060; J3490